=== PATIENT | male | born 1950 | race Caucasian/White ===

== ENCOUNTER 2024-07-15 20:31 | Emergency (ER) | payer MEDICARE, SELFPAY ==
[2024-07-15 20:40] VITALS: BP 158/96; PULSE 73; RESP 16; TEMP 36.2; O2SAT 93; BMI 33.2
[2024-07-15 20:56] LABS: Appearance Urine Clear (Clear); Bilirubin Urine Negative (Negative); Blood Urine 1+ (Negative); Color Urine Yellow (Yellow); Glucose Urine Negative (Negative); Ketones Urine Negative (Negative); Leukocyte Esterase Urine Negative (Negative); Nitrite Urine Negative (Negative); Protein Urine Negative (Negative); Specific Gravity Urine 1.015 (1.000-1.030); Urobilinogen Urine 0.2 (0.2-1.0); pH Urine 5.5 (5.0-8.5)
[2024-07-15 21:06] LABS: RBC Urine 0-2 (0-2); WBC Urine 0-2 (0-5)
--- NOTE | 2024-07-15 21:10 | ED_ITS ---
HPI - General Adult General Chief complaint: Urogenital Problems, Male Stated complaint: Frequency/Urgency urination Time Seen by Provider: 07/15/24 20:54 History of Present Illness HPI narrative: unable to hold urine this morning. Pt reports urination every 30 minutes. No col or to urine . No pain, no burning. No extra amount of fluid consumption. 73-year-old man presenting to the emergency department with concern of urinary frequency. Sounds as though some degree of urge incontinence as well. No dysuria. Is not drinking more than usual particularly; is not thirsty. Spouse checked his blood sugar at 110 earlier today. Has not had any fever. She does note that he has been maybe more short of breath lately last week and half perhaps but he does not posteriorly think so. No chest pain. They have been doing a lot of traveling. Actually from [place]. Spouse also mentions that he has had increased depth at his sock line lately. Also notes that his mother was diagnosed with diabetes. Does have a history of BPH and takes Flomax. Has been feeling more bloated lately. Does not otherwise have abdominal pain. Medications include -- amlodipine Aspirin Brimonidine tartrate drops Latanoprost drops Simvastatin solifenacin Fexofenadine Related Data Allergies Allergy/AdvReac Type Severity Reaction Status Date / Time No Known Drug Allergies Allergy Verified 07/15/24 20:45 Review of Systems Status of ROS: Reports: 6 or more systems reviewed and unremarkable except as noted in History and below [facility] Social History Smoking Status: Never smoker Do you use any of these nicotine containing products: None How often do you have a drink containing alcohol: never How often do you have six or more drinks on one occasion: Never AUDIT-C Alcohol total score: 0 Non-prescribed substance use: denies use service: No Exam Narrative: Exam Narrative: Pleasant. NAD. Affected speech and with hearing aids. Skin is warm and dry. Well-perfused peripherally. He does have 1+ pitting edema pretibially and about the ankles bilaterally. No inflammatory changes. Heart in regular rate and rhythm without apparent murmur rub or gallop. Lungs are clear. He is not tachypneic. He is breathing easily. Abdomen is protuberant, overweight, soft nontender. No masses appreciated. Const: Vital Signs, click to edit/add: Vital Signs - 24 hr 07/15/24 20:40 Temperature 97.2 F L Pulse Rate [Left P ulse Oximeter] 73 Respiratory Rate 16 Blood Pressure [Ri ght Upper Arm] 158/96 H Pulse Oximetry 93 Oxygen Delivery Me thod Room Air Documenting provider has reviewed patient's vital signs: yes Course Vital Signs Vital signs: Initial Vital Signs Temperature 97.2 F L 07/15/24 20:40 Temperature Source Temporal Artery Scan 07/15/24 20:40 Pulse Rate 73 07/15/24 20:40 Pulse Rhythm Regular 07/15/24 20:40 Respiratory Rate 16 07/15/24 20:40 Blood Pressure 158/96 H 07/15/24 20:40 Blood Pressure Mean 116 H 07/15/24 20:40 Blood Pressure Position Sitting 07/15/24 20:40 Pulse Oximetry 93 07/15/24 20:40 Oxygen Delivery Method Room Air 07/15/24 20:40 Vital Signs Temperature 97.2 F L 07/15/24 20:40 Pulse Rate 73 07/15/24 20:40 Respiratory Rate 16 07/15/24 20:40 Blood Pressure 158/96 H 07/15/24 20:40 Pulse Oximetry 93 07/15/24 20:40 Oxygen Delivery Method Room Air 07/15/24 20:40 Temperature 97.2 F L 07/15/24 20:40 Pulse Rate 73 07/15/24 20:40 Respiratory Rate 16 07/15/24 20:40 Blood Pressure 158/96 H 07/15/24 20:40 Pulse Oximetry 93 07/15/24 20:40 Oxygen Delivery Method Room Air 07/15/24 20:40 Medical Decision Making MDM Narrative Medical decision making narrative: Urinalysis is rate been collected by the time I am seeing this patient. Noted to have 1+ blood on dipstick. Microscopic is unremarkable. No evidence of infection here. Symptoms seem inconsistent with urethritis. I do not identify risk factors either. May have some overflow incontinence. Will do a bladder scan and reassess further at that time. I appreciate spousal concerns of potential kidney problems and diabetes. Does not have secondary symptoms that I would associate with diabetes insipidus. Does not appear to be in respiratory distress consistent with heart failure or fluid overload otherwise though oxygen saturations on room air on initial evaluation at 93% Traveling is not an unreasonable reason to have peripheral edema. No pain or inflammatory change and symmetry is reassuring. Bladder scanned for ?less than 160 mL Will be doing chest x-ray and broad laboratory workup looking for red flags. Might be beneficial to quantify urine out though current travel schedule would make this difficult. Signing out at change of shift Lab Data Lab results reviewed: Yes I reviewed the patient's lab results Labs: Lab Results 07/15/24 Range/Units 20:50 Urine Color Yellow (Yellow) Urine Appearance Clear (Clear) Urine pH 5.5 (5.0-8.5) Ur Specific [place] 1.015 (1.000-1.030) Urine Protein Negative (Negative) Urine Glucose (UA) Negative (Negative) Urine Ketones Negative (Negative) Urine Blood 1+ A (Negative) Urine Nitrite Negative (Negative) Urine Bilirubin Negative (Negative) Urine Urobilinogen 0.2 (0.2-1.0) Ur Leukocyte Esterase Negative (Negative) Urine RBC 0-2 (0-2) Urine WBC 0-2 (0-5) Ur Squamous Epith Cells None (None-Few) Urine Bacteria None (None) Discharge Plan Discharge Clinical Impression: Urinary frequency, Urge incontinence Patient Disposition: Home w/ Parent or Adult Condition: Stable Additional Instructions: Follow-up when you get back to [place]. Might need to quantify how much urine you are actually making. Elevate your legs when possible. Might help to have light compression stockings. Follow Up/Referrals: Provider,Not a Local [Primary Care Provider] - Stand Alone Forms: [employer] Info Instructions
--- NOTE | 2024-07-15 21:31 | CRLHL7_ITS ---
For Patients: As a result of the Cures Act, medical imaging exams and procedure reports are released immediately into your electronic medical record. You may view this report before your referring provider. If you have questions, please contact your health care provider. INDICATION: Mild hypoxia TECHNIQUE: Chest radiograph 1 view COMPARISON: None FINDINGS: The sensitivity and specificity of the exam are severely limited by the patient`s body habitus. Mediastinum: The mediastinum is normal in appearance. The heart silhouette is normal in size and morphology. Lung: Small lung volumes are present with minimal bibasilar subsegmental atelectasis. No sign of pleural effusion seen. No pneumothorax is identified. Bone and Soft tissue: Unremarkable for age. IMPRESSION: 1. Small lung volumes are present with minimal bibasilar subsegmental atelectasis. Dictated by Sam Arevalo MD @ 07/15/2024 10:36:01 PM Dictated by: Sam Arevalo MD @ 07/15/2024 22:36:05 (Electronically Signed)
--- OUTSIDE RECORDS SUMMARY | 2024-07-15 21:38 | XMS_ITS | Encounter Summary ---
[facility] Address [address] [place] [address] Care Team Providers Care Caramel Candy Maker Helper Name Role Phone Polo Urrutia DO Primary Care Provider Reason for Visit * Reason Comments Refill Request Encounter Details Date Type Department Care Team (Late st Contact Info) Description 06/11/2024 Refill [facility] [address] [place], [place] [id number] Polo Urrutia DO [address] [facility] [address] [place], [place] [id number] Refill Request Social History Tobacco Use Types Packs/Day Years Used Date Smoking Tobacco: Never Smokeless Tobacco: Never Alcohol Use Standard Drinks/Week Comments No 0 (1 standard drink = 0.6 oz pur e alcohol) occ Social Connection and Isolat ion Panel [NHANES] Answer Date Recorded In a typical week, how many times do you talk on the phone with family, friends, or neighbors? Patient declined 05/09/2023 How often do you get togethe r with friends or relatives? Once a week 05/09/2023 How often do you attend chur ch or roman catholic services? More than 4 times per year 05/09/2023 Do you belong to any clubs o r organizations such as yarsani groups, unions, fraternal or athletic groups, or school groups? Yes 05/09/2023 How often do you attend meet ings of the clubs or organizations you belong to? More than 4 times per year 05/09/2023 Are you , , di vorced, , never , or living with a partner? 05/09/2023 Overall Financial Resource Strain (CARDIA) Answe r Date Recorded How hard is it for you to pa y for the very basics like food, housing, medical care, and heating? Not hard at all 05/09/2023 [facility] - Occupational Stress Questionnaire Answer Date Recorded Do you feel stress - tense, restless, nervous, or anxious, or unable to sleep at night because your mind is troubled all the time - these days? Not at all 05/09/2023 Exercise Vital Sign Answer Date Recorde d On average, how many days pe r week do you engage in moderate to strenuous exercise (like a brisk walk)? 2 days 05/09/2023 On average, how many minutes do you engage in exercise at this level? 10 min 05/09/2023 Hunger Vital Sign Answer Date Recorded Within the past 12 months, y ou worried that your food would run out before you got the money to buy more. Never true 05/09/20 23 Within the past 12 months, t he food you bought just didn't last and you didn't have money to get more. Never true 05/09/2023 PRAPARE - Transportation Answer Date Re corded In the past 12 months, has l ack of transportation kept you from medical appointments or from getting medications? No 04/28 In the past 12 months, has l ack of transportation kept you from meetings, work, or from getting things needed for daily living? No 05/09/2023 Housing Stability Vital Sign Answer Sid e Recorded In the last 12 months, was t here a time when you were not able to pay the mortgage or rent on time? No 05/09/2023 In the last 12 months, how many places have you lived? 1 05/09/2023 In the last 12 months, was t here a time when you did not have a steady place to sleep or slept in a senior living (including now)? No 05/09/2023 Alcohol Use Answer Date Recorded Q1: How often do you have a drink containing alc ohol? Monthly or less 05/09/2023 Q2: How many drinks containi ng alcohol do you have on a typical day when you are drinking? 1 or 2 05/09/2023 Q3: How often do you have si x or more drinks on one occasion? Less than monthly 05/09/2023 Depression Answer Date Recorded Total PHQ-2 Score: 0 05/09/2023 PHQ-9 Score Not on file 05/09/2023 PHQ-9M Score Not on file 05/09/2023 Sex and Gender Information Value Date Recorded Sex Assigned at Male 10/19/2021 4:19 AM SPRAY PAINTER Gender Identity Male 10/19/2021 4:19 AM SPRAY PAINTER Sexual Orientation Choose not to disclose 2023 3:33 PM SPRAY PAINTER documented as of this encounter Miscellaneous Notes * Telephone Encounter - Isabella Saucedo CMA - 06/12/2024 7:15 AM CDT Failed protocol due to need for Office Visit and/or labs. 90 days with 0 refills given. Next appointment: Future Appointments Date Time Provider Department Center 06/23/2024 2:30 PM Milagro Fernandez Au.D. ENT ENT 06/24/2024 9:00 AM Landry Chavez MD [facility] 06/27/2024 8:45 AM Sandy Rivero MD [facility] 07/01/2024 8:40 AM [facility] 07/01/2024 3:15 PM Polo Urrutia DO [facility] [place] documented in this encounter Plan of Treatment Upcoming Encounters Date Type Department Care Team (Late st Contact Info) Description 07/23/2024 1:30 PM CDT Office Visit [facility] [address] [place] [address] Sandy Rivero MD [address] [place] [id number] 09/26/2024 1:00 PM SPRAY PAINTER Appointment [facility] [address] [place] [address] Polo Urrutia DO [address] [place] [address] 10/07/2024 1:00 PM SPRAY PAINTER Office Visit [facility] [address] [place] [address] Landry Chavez MD [address] [place] [address] 12/15/2024 2:00 PM SPRAY PAINTER Office Visit [facility] [address] [place] [phone] Milagro Fernandez Au.D. [address] [place] [phone] 07/08/2025 8:00 AM CDT Lab/Non-Imaging [facility] [address] [place] [address] 07/08/2025 8:45 AM CDT Office Visit [facility] [address] [place] [address] Polo Urrutia DO [address] [place] [address] documented as of this encounter Visit Diagnoses Not on filedocumented in this encounter Additional Health Concerns Assessment Noted Time PHQ-9 Depression Total Score: 3 09/28/20 15 5:07 PM SPRAY PAINTER A fall risk assessment has been complete d for the patient 11/14/2022 9:17 AM SPRAY PAINTER documented as of this encounter Care Teams Caramel Candy Maker Helper Relationship Specialty Start Date End Date Polo Urrutia DO [address] [place] [address] PCP - General Family Medicine 04/22/19 documented as of this encounter
--- OUTSIDE RECORDS SUMMARY | 2024-07-15 21:38 | XMS_ITS | Encounter Summary ---
[facility] Address [address] [place] [address] Care Team Providers Care Technical Sourcing Recruiter Name Role Phone Polo Urrutia DO Primary Care Provider Reason for Referral * Procedures (Routine) - Authorized Specialty Diagnoses / Procedures Referred By Maria Teresa cuba Referred To Contact Diagnoses Snoring Daytime somnolence Procedures HOME SLEEP APNEA TEST 93870 ([facility] ONLY) Polo Urrutia DO [address] [place] [address] Referral ID Status Reason Start Date Expiration Date Visits Requested Visits Authorized [id number] Authorized Specialty Services Required 07/01/2024 12/28/2024 1 1 Reason for Visit * Reason Comments Medicare - Subsequent Wellness Visit Encounter Details Date Type Department Care Team (Late st Contact Info) Description 07/01/2024 3:15 PM CDT Office Visit [facility][Note 3] [address] [place], [place] [id number] Polo Urrutia DO [address] [place], [place] [id number] Encounter for screening and preventative care (Primary Dx); Central retinal vein occlusion with macular edema of left eye (*); Essential hypertension; Dyslipidemia; Class 1 obesity due to excess calories with serious comorbidity and body mass index (BMI) of 32.0 to 32.9 in adult; Snoring; Daytime somnolence; Screening PSA (prostate specific antigen); IFG (impaired fasting glucose) Social History Tobacco Use Types Packs/Day Years Used Date Smoking Tobacco: Never Smokeless Tobacco: Never Alcohol Use Standard Drinks/Week Comments Yes 0 (1 standard drink = 0.6 oz pur e alcohol) [facility] Utilities Answer Date Recorded In the past 12 months has e [employer], [employer], oil, or water [employer] threatened to shut off services in your home? No 06/30/2024 Social Connection and Isolat ion Panel [NHANES] Answer Date Recorded In a typical week, how many times do you talk on the phone with family, friends, or neighbors? Never 06/30/2024 How often do you get togethe r with friends or relatives? Once a week 06/30/2024 How often do you attend chur ch or baptist services? More than 4 times per year 06/30/2024 Do you belong to any clubs o r organizations such as taoist groups, unions, fraternal or athletic groups, or school groups? Yes 06/30/2024 How often do you attend meet ings of the clubs or organizations you belong to? 1 to 4 times per year 06/30/2024 Are you , , di vorced, , never , or living with a partner? 06/30/2024 Overall Financial Resource Strain (CARDIA) Answe r Date Recorded How hard is it for you to pa y for the very basics like food, housing, medical care, and heating? Not hard at all 05/09/2023 [employer] [place] [employer] - Occupational Stress Questionnaire Answer Date Recorded Do you feel stress - tense, restless, nervous, or anxious, or unable to sleep at night because your mind is troubled all the time - these days? Not at all 06/30/2024 Exercise Vital Sign Answer Date Recorde d On average, how many days pe r week do you engage in moderate to strenuous exercise (like a brisk walk)? 2 days 06/30/2024 On average, how many minutes do you engage in exercise at this level? 10 min 06/30/2024 Hunger Vital Sign Answer Date Recorded Within the past 12 months, y ou worried that your food would run out before you got the money to buy more. Never true 06/30/20 24 Within the past 12 months, t he food you bought just didn't last and you didn't have money to get more. Never true 06/30/2024 PRAPARE - Transportation Answer Date Re corded In the past 12 months, has l ack of transportation kept you from medical appointments or from getting medications? No 11/2023 In the past 12 months, has l ack of transportation kept you from meetings, work, or from getting things needed for daily living? No 06/30/2024 Housing Stability Vital Sign Answer Sid e [...] place to sleep or slept in a longterm (including now)? No 05/09/2023 Alcohol Use Answer Date Recorded Q1: How often do you have a drink containing alc ohol? Monthly or less 06/30/2024 Q2: How many drinks containi ng alcohol do you have on a typical day when you are drinking? 1 or 2 06/30/2024 Q3: How often do you have si x or more drinks on one occasion? Never 06/30/2024 Depression Answer Date Recorded Total PHQ-2 Score: 0 06/30/2024 PHQ-9 Score 0 06/30/2024 PHQ-9M Score Not on file 06/30/2024 Sex and Gender Information Value Date Recorded Sex Assigned at Male 10/19/2021 4:19 AM ALGEBRA TUTOR Gender Identity Male 10/19/2021 4:19 AM ALGEBRA TUTOR Sexual Orientation Choose not to disclose 2023 3:33 PM ALGEBRA TUTOR documented as of this encounter Last Filed Vital Signs Vital Sign Reading Time Taken Comments Blood Pressure 112/78 07/01/2024 3:05 PM CDT Pulse 82 07/01/2024 3:05 PM CDT Temperature - - Respiratory Rate - - Oxygen Saturation 93% 07/01/2024 3:05 PM CDT Inhaled Oxygen Concentration - - Weight 108 kg (238 lb) 07/01/2024 3:05 PM CDT Height 180.3 cm (5' 11) 07/01/2024 3:05 PM CDT Body Mass Index 33.19 07/01/2024 3:05 PM CDT documented in this encounter Progress Notes * Polo Urrutia, DO - 07/01/2024 3:15 PM CDT Georges Hendricks is a 73 year old (: 1950) male who presents to the office today for a Medicare Wellness Exam. He reports that in general his health is good and that his confidence level in controlling and managing his health is somewhat confident Advance Care Planning Patient Documents Type of Document Status Date Received Received By Description Advance Directives and Living Will Scanned 11/05/2020 11:59 AM SARA BOOGIE POA [id number] History Medical and Family History Patient reported hospitalizations in the past year: No Patient reported illnesses requiring medical attention in the past year: Yes Patient reported injuries requiring medical attention in the past year: Yes Medical, Surgical, and Family History have been reviewed and updated. 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 HTN (hypertension) 06/12/2012 Hyperlipidemia 06/12/2012 Other and unspecified hyperlipidemia Unspecified essential hypertension Past Surgical History: Procedure Laterality Date ANESTH,PROCEDURES ON EYE ANESTH,REPAIR UPPER ABD HERNIA NOS 2008 CATARACT EXTRACTION EXTRACAPSULAR W/ INTRAOCULAR LENS IMPLANTATION Bilateral CATARACT EXTRACTION, BILATERAL COLONOSCOPY N/A 11/14/2022 Colonoscopy performed by Emanuel Silva MD at [facility] COLONOSCOPY POLYPECTO N/A 10/18/2017 COLONOSCOPY WITH POLYPECTOMY OR REMOVAL LESION performed by Quinn Gerardo MD at [facility] INGUINAL HERNIA REPAIR right side, also had hernia surgery as young child MUSCULOSKELETAL SURGERY UNLISTED 2007 finger ORAL SURGERY PROCEDURE teeth removed RETINAL DETACHMENT SURGERY Right VASECTOMY Family History Problem Relation Name Age of Onset Diabetes Mother Heart/Vascular Mother [place] Cataracts Mother Glaucoma Mother Stroke Father 50 Medication Patient reports that he takes his medications as prescribed: Always Patient's medications were reviewed and updated and are listed below: Current Outpatient Medications: amLODIPine (NORVASC) 5 mg oral tablet, Take 1 tablet (5 mg total) by mouth once daily. Indications:High Blood Pressure Disorder aspirin 81 MG oral tablet, Take 81 mg by mouth every day. doxycycline monohydrate (ADOXA) 50 mg oral tablet, Take 1 tablet (50 mg total) by mouth twice dailyUse twice daily for 1 week, then once daily for 3 more weeks. Indications: Rosacea gfklkhxy-nhdgcozqz-ibrNCDYZgnbws (MAXITROL) 3.5-10,000-0.1 eye SUSP, SHAKE LIQUID AND INSTILL 1 DROP IN BOTH EYES THREE TIMES DAILY simvastatin (ZOCOR) 20 mg oral tablet, Take 1 tablet (20 mg total) by mouth once daily. Indications: Increase in the Amount of Cholesterol in the Blood solifenacin (VESICARE) 5 mg oral tablet, Take 1 tablet (5 mg total) by mouth once daily. Indications: Urinary Urgency tamsulosin (FLOMAX) 0.4 mg oral capsule, Take 1 capsule (0.4 mg total) by mouth once daily. Indications: Benign Enlargement of Prostate brimonidine (ALPHAGAN) 0.2 % eye eye drops, Place 1 drop into both eyes 2 (two) times a day. Allergies Review of patient's allergies indicates: No Known Allergies Current List of Providers and Suppliers: Patient Care Team Relationship Specialty Notifications Start End Polo Urrutia DO PCP - General Family Medicine 04/22/19 [id number] [address] [facility] [address] [facility] [id number] Visit Vitals: BP Readings from Last 1 Encounters: 07/01/24 112/78 Pulse Readings from Last 1 Encounters: 07/01/24 82 Ht Readings from Last 1 Encounters: 07/01/24 5' 11 (1.803 m) Wt Readings from Last 1 Encounters: 07/01/24 238 lb (108 kg) BMI Readings from Last 1 Encounters: 07/01/24 33.19 kg/m?? Risk Assessment: Cognitive: Does patient or family/caregiver have concerns with patients memory, language, thinking or judgment?: None Psychosocial: Depression/Anxiety: 06/30/2024 11:14 AM 05/09/2023 11:33 AM Anxiety/Depression Feeling nervous, anxious or on edge Not at all Not being able to stop or control worrying Not at all CURT-2 score: 0 Little interest or pleasure in doing things Not at all Not at all Feeling down, depressed or hopeless Not at all Not at all Total PHQ-2 Score: 0 0 Total PHQ 4 Score 0 Trouble falling or staying asleep, or sleeping too much Not at all Feeling tired or having little energy Not at all Poor appetite or overeating Not at all Feeling bad about yourself or that you are a failure or have let yourself or your family down Not at all Thoughts that you would be better off , or of hurting yourself Not at all Trouble concentrating on things, such as reading the newspaper or watching television Not at all Moving/speaking slowly, or fidgety or restless Not at all Total PHQ-9 Score 0 How difficult have the problems made it to do work, take care of things, or get along with others? Not Difficult at All PHQ-9 Interpretation: Based on Total Score Negative PHQ-2 Interpretation: Based on Total Score Negative Negative Stress: Stress: No Stress Concern Present (06/30/2024) [place] [employer] - Occupational Stress Questionnaire Feeling of Stress : Not at all Functional Ability and Level of Safety ADL???s/IADL???s: Patient needs assistance with the following activities of daily living (ADL???s): None Patient needs assistance with the following instrumental activities of daily living (IADL???s): None Fall Risk: Patient evaluated as LOW FALLS RISK see falls risk flowsheet and encounter orders. Hearing Impairment: Patient has hearing aids? Yes Patient reports trouble hearing when in a group or when there???s background noise? Yes Patient reports that they strain or struggle to hear/understand conversations? Yes Home Safety: Patient's home has the following potential safety risks: None Patient's home is equipped with the following safety features: Functioning smoke alarms;Functioningcarbon monoxide alarms;Grab bars in the shower and/or tub Other Nutrition/Food Insecurity: Patient rates appetite as: Good Patient reports the following dietary restrictions? No Unexplained or unplanned weight gain or loss in the past year? Yes - weight gain Food Insecurity: Food Insecurity: No Food Insecurity (06/30/2024) Hunger Vital Sign Worried About Running Out of Food in the Last Year: Never true Ran Out of Food in the Last Year: Never true Bladder Control: Patient reports that bladder control a problem? No Has urine leakage changed the patient???s daily activities or interfered with sleep? No If urine leakage is a problem, patient is willing to try: Nothing/and not applicable Screening Health Maintenance Topic Completion Date Date Due Shingles (1 of 2) --- Never done RSV Adult 60+ and patients (Shared Decision Making) (1 - 1-dose 60+ series) --- Never done COVID-19 Vaccine ( season) 2022 06/29/2024 Colonoscopy (Heightened Surveillance) 11/14/2022 11/14/2027 DTaP/Tdap/Td/Tetanus (3 - Td or Tdap) 05/05/2021 05/05/2031 Immunization History Administered Date(s) Administered Influenza High Dose 07/24/2018, 08/19/2019, 06/12/2024 Influenza Quadrivalent High Dose P-Free 08/16/2020, 08/01/2021 Influenza Quadrivalent P-Free 09/28/2015 Influenza Trivalent 08/14/2011, 07/27/2013, 08/09/2014 Influenza Trivalent Preservative-Free 08/22/2012, 09/01/2016, 09/17/2017 Moderna SARS-CoV-2 100 mcg/0.5 mL MONOVALENT 01/05/2021, 02/02/2021 Moderna Sars-cov-2 50 MCG/0.25 ML Adult Booster Vaccine 10/20/2021, 05/09/2022 Pneumo-Conjugate 13 10/02/2017 Pneumococcal 23 04/22/2019 Td Preservative-Free 05/05/2021 Tdap > 7 Years 08/14/2011 ASSESSMENT: 1. Encounter for screening and preventative care 2. Central retinal vein occlusion with macular edema of left eye (*) 3. Essential hypertension 4. Dyslipidemia 5. Class 1 obesity due to excess calories with serious comorbidity and body mass index (BMI) of 32.0 to 32.9 in adult 6. Snoring 7. Daytime somnolence 8. Screening PSA (prostate specific antigen) 9. IFG (impaired fasting glucose) Encounter Diagnoses Code Name Primary? Z00.00 Encounter for screening and preventative care Yes H34.8120 Central retinal vein occlusion with macular edema of left eye (*) I10 Essential hypertension E78.5 Dyslipidemia E66.09, Z68.32 Class 1 obesity due to excess calories with serious comorbidity and body mass index (BMI) of 32.0 to 32.9 in adult R06.83 Snoring R40.0 Daytime somnolence Z12.5 Screening PSA (prostate specific antigen) R73.01 IFG (impaired fasting glucose) PLAN Based on the identified risks, the following orders and referrals have been placed: Orders Placed This Encounter Home Sleep Apnea Test Standing Status: Future Standing Expiration Date: 12/29/2024 Order Specific Question: Category for procedure: Answer: Hypersomnia/Fatigue Order Specific Question: Category for procedure: Answer: Obstructive Sleep Apnea/Snoring Order Specific Question: Insurance requires that a patient see their PCP before covering a home sleep test. Has the patient seen their PCP in the last six months? Answer: Yes Order Specific Question: Have you had a sleep study? Answer: No Order Specific Question: Does the patient snore? Answer: Yes Order Specific Question: Is the patient often tired during the day? Answer: Yes Order Specific Question: Does the patient stop breathing while they are asleep? Answer: No Order Specific Question: Does the patient have high blood pressure (or is the patient on medicationto control high blood pressure)? Answer: No Order Specific Question: If the patient answered yes to two or more of the above questions, then isthe patients body mass index (BMI) greater than 28? Answer: Yes Order Specific Question: Is the patient a male with a neck circumference greater than 17 inches or is the patient a female with a neck circumference greater than 16 inches? Answer: Yes Order Specific Question: Does the patient have a diagnosed heart condition? Answer: No Order Specific Question: Does the patient have any known seizure conditions? Answer: No Order Specific Question: Does the patient have hypertension? Answer: Yes Order Specific Question: Does the patient have diabetes? Answer: No Order Specific Question: Does the patient have a diagnosed mental health disorder? Answer: No Comprehensive Metabolic Panel Standing Status: Future Standing Expiration Date: 09/29/2025 Lipid Panel with Reflex LDL Standing Status: Future Standing Expiration Date: 09/29/2025 Glycohemoglobin/Hemoglobin A1C Standing Status: Future Standing Expiration Date: 09/29/2025 Microalbumin/Creat Ratio, Random Urine Standing Status: Future Standing Expiration Date: 12/29/2025 Prostatic Specific Ag, Screen Standing Status: Future Standing Expiration Date: 09/29/2025 tamsulosin (FLOMAX) 0.4 mg oral capsule Sig: Take 1 capsule (0.4 mg total) by mouth once daily. Indications: Benign Enlargement of Prostate Dispense: 90 capsule Refill: 4 solifenacin (VESICARE) 5 mg oral tablet Sig: Take 1 tablet (5 mg total) by mouth once daily. Indications: Urinary Urgency Dispense: 90 tablet Refill: 4 simvastatin (ZOCOR) 20 mg oral tablet Sig: Take 1 tablet (20 mg total) by mouth once daily. Indications: Increase in the Amount of Cholesterol in the Blood Dispense: 90 tablet Refill: 4 amLODIPine (NORVASC) 5 mg oral tablet Sig: Take 1 tablet (5 mg total) by mouth once daily. Indications: High Blood Pressure Disorder Dispense: 90 tablet Refill: 4 Future Appointments Date Time Provider Department Center 07/23/2024 1:30 PM Sandy Rivero MD [facility] 10/07/2024 1:00 PM Landry Chavez MD [facility] 12/15/2024 2:00 PM Milagro Fernandez Au.D. ENT [facility] 07/08[facility]2025 8:[facility] 07/08/2025 8:45 AM [facility]ut[facility] Documenting and scribing by Jaida Jimenez LPN on behalf of Polo Urrutia DO. I have reviewed and agree. Polo Urrutia DO. * Polo Urrutia DO - 07/01/2024 3:15 PM CDT Images from the original note were not included. ASSESSMENT/PLAN: 1. Encounter for screening and preventative care Discussed RSV vaccine from local pharmacy. [facility] 2. Central retinal vein occlusion with macular edema of left eye (*) He will continue follow-up in management through ophthalmology. 3. Essential hypertension Controlled on current regimen 4. Dyslipidemia LDL is well-controlled with simvastatin. Encouraged him on weight reduction to help with triglycerides. 5. Class 1 obesity due to excess calories with serious comorbidity and body mass index (BMI) of 32.0 to 32.9 in adult Healthy lifestyle exercise and weight reduction encouraged. 6. Snoring - HOME SLEEP APNEA TEST 64031 ([facility] ONLY); Future He has had some daytime somnolence and snoring suspicious for sleep apnea. Will get him set up for home apnea link testing for further evaluation. 7. Daytime somnolence - HOME SLEEP APNEA TEST 69650 ([facility] ONLY); Future Health maintenance recommendations were reviewed. Healthy diet, exercise and weight management werereviewed. Healthy lifestyle reviewed including refraining from tobacco use and limiting alcohol consumption to 1-2 daily. No orders of the defined types were placed in this encounter. Orders Placed This Encounter tamsulosin (FLOMAX) 0.4 mg oral capsule Sig: Take 1 capsule (0.4 mg total) by mouth once daily. Indications: Benign Enlargement of Prostate Dispense: 90 capsule Refill: 4 solifenacin (VESICARE) 5 mg oral tablet Sig: Take 1 tablet (5 mg total) by mouth once daily. Indications: Urinary Urgency Dispense: 90 tablet Refill: 4 simvastatin (ZOCOR) 20 mg oral tablet Sig: Take 1 tablet (20 mg total) by mouth once daily. Indications: Increase in the Amount of Cholesterol in the Blood Dispense: 90 tablet Refill: 4 amLODIPine (NORVASC) 5 mg oral tablet Sig: Take 1 tablet (5 mg total) by mouth once daily. Indications: High Blood Pressure Disorder Dispense: 90 tablet Refill: 4 Follow up in about 1 year (around 07/01/2025) for medicare wellness exam, fasting labs. Future Appointments Date Time Provider Department Center 07/23/2024 1:30 PM Sandy Rivero MD [facility] 10/07/2024 1:00 PM Landry Chavez MD [facility] 12/15/2024 2:00 PM Milagro Fernandez Au.D. ENT ENT 07/08/2025 8:00 AM [facility] 07/08/2025 8:45 AM Polo Urrutia DO [facility] Documenting and scribing by Jaida Jimenez LPN on behalf of Polo Urrutia DO. Reviewed and approved by Polo Urrutia DO. Chief Complaint Patient presents with Medicare - Subsequent Wellness Visit SUBJECTIVE: Georges Hendricks is a 73 year old male who is here for a Medicare wellness visitand physical exam. Additional concerns: None. He states overall he is feeling well. He continues to follow-up with ophthalmology for injections related to his central retinal vein occlusion. Otherwise denies any issueswith chest pain or shortness of breath. His does tells him that he snores and that he does find himself struggling to stay awake in the afternoon or evening. He has never had evaluation for sleep apnea. Otherwise health history family history and social history reviewed. Medicare Wellness Flowsheet reviewed. Review of Systems no headaches strokes seizures or fainting spells. He does wear hearing aids. No thyroid disease or dysphagia. No chest pain or shortness of breath. No chronic cough or wheezing. No GI or symptoms. No arthralgias or edema. Otherwise unremarkable Patient Active Problem List Diagnosis Allergic rhinitis Dyslipidemia Essential hypertension Class 1 obesity due to excess calories with serious comorbidity and body mass index (BMI) of 32.0 to 32.9 in adult Benign prostatic hyperplasia with nocturia Central retinal vein occlusion with macular edema of left eye (*) Ocular hypertension of left eye Current Outpatient Medications on File Prior to Visit Medication Sig Dispense Refill aspirin 81 MG oral tablet Take 81 mg by mouth every day. doxycycline monohydrate (ADOXA) 50 mg oral tablet Take 1 tablet (50 mg total) by mouth twice daily Use twice daily for 1 week, then once daily for 3 more weeks. Indications: Rosacea 35 tablet 1 aotplsvz-tgswgetsp-xjqIGZUPqourd (MAXITROL) 3.5-10,000-0.1 eye SUSP SHAKE LIQUID AND INSTILL 1 DROPIN BOTH EYES THREE TIMES DAILY 5 mL 0 brimonidine (ALPHAGAN) 0.2 % eye eye drops Place 1 drop into both eyes 2 (two) times a day. 30 mL 3 [DISCONTINUED] amLODIPine (NORVASC) 5 mg oral tablet Take 1 tablet (5 mg total) by mouth once daily. Indications: High Blood Pressure Disorder 90 tablet 0 [DISCONTINUED] latanoprost (XALATAN) 0.005 % eye eye drops Place 1 drop into both eyes every night at bedtime. [DISCONTINUED] bmmbgnmb-achxtvsox-rovDPOBJeplmu (MAXITROL) 3.5-10,000-0.[address] 1 drop into both eyes three times daily. 5 mL 0 [DISCONTINUED] simvastatin (ZOCOR) 20 mg oral tablet Take 1 tablet (20 mg total) by mouth once daily. Indications: Increase in the Amount of Cholesterol in the Blood 90 tablet 0 [DISCONTINUED] solifenacin (VESICARE) 5 mg oral tablet Take 1 tablet (5 mg total) by mouth once daily. Indications: Urinary Urgency 90 tablet 0 [DISCONTINUED] tamsulosin (FLOMAX) 0.4 mg oral capsule Take 1 capsule (0.4 mg total) by mouth once daily. Indications: Benign Enlargement of Prostate 90 capsule 0 No current facility-administered medications on file prior to visit. Review of patient's allergies indicates: No Known Allergies reports that he has never smoked. He has never used smokeless tobacco. He reports current alcohol use. He reports that he does not use drugs. Health Maintenance Summary Overdue - Shingles (1 of 2) Never done No completion history exists for this topic. Overdue - RSV Adult 60+ and patients (Shared Decision Making) (1 - 1- dose 60+ series) Never done No completion history exists for this topic. Overdue - COVID-19 Vaccine (2022-24 season) Overdue since 06/29/2024 05/09/2022 Imm Admin: Moderna Sars-cov-2 50 MCG/0.25 ML Adult Booster Vaccine 10/20/2021 Imm Admin: Moderna Sars-cov-2 50 MCG/0.25 ML Adult Booster Vaccine 02/02/2021 Imm Admin: Moderna SARS-CoV-2 100 mcg/0.5 mL MONOVALENT 01/05/2021 Imm Admin: Moderna SARS-CoV-2 100 mcg/0.5 mL MONOVALENT Pneumococcal 65+ (Series Information) Completed 04/22/2019 Imm Admin: Pneumococcal 23 10/02/2017 Imm Admin: Pneumo-Conjugate 13 Hep C Screening Completed 05/11/2023 HEP C ANTIBODY component of HEPATITIS C ANTIBODY W/REFLEX HCV BY QUANT NAAT ([facility] ONLY) Flu 6M+ (Series Information) Completed 06/12/2024 Outside Immunization: Influenza High Dose Trivalent, P-Free 08/01/2021 Imm Admin: Influenza Quadrivalent High Dose P-Free 08/16/2020 Imm Admin: Influenza Quadrivalent High Dose P-Free 08/19/2019 Imm Admin: Influenza High Dose 07/24/2018 Imm Admin: Influenza High Dose Only the first 5 history entries have been loaded, but more history exists. OBJECTIVE: Visit Vitals BP 112/78 (BP Site: R ARM, Patient Position: Sitting, Cuff Size: Large Long Adult (Bariatric)) Pulse 82 Ht 5' 11 (1.803 m) Wt 238 lb (108 kg) SpO2 93% BMI 33.19 kg/m?? BP Readings from Last 3 Encounters: 07/01/24 112/78 11/17/23 122/82 05/11/23 122/80 Wt Readings from Last 3 Encounters: 07/01/24 238 lb (108 kg) 11/17/23 239 lb 12.8 oz (108.8 kg) 05/11/23 231 lb 3.2 oz (104.9 kg) VS noted, nurse's notes reviewed. General: Patient is alert and cooperative,is well groomed and obese Physical Exam HEENT: Hearing aids in place. Oropharynx without erythema or exudate Neck: no lymphadenopathy, thyromegaly or bruits Lungs: clear to auscultation bilaterally with good air movement and breathing nonlabored Heart: auscultation of heart revels a regular rate with no murmurs, gallops or rubs Abdomen: Obese-normal bowel sounds, soft and non-tender. Extremities: Edema: None. Distal pulses of the lower extremities: Intact bilaterally Psych: Affect appropriate. He is pleasant and well composed. Labs drawn for today's visit noted below reviewed with patient at visit. Recent Results (from the past 336 hour(s)) JUST IN CASE LAVENDER TOP TUBE Result Value Ref Range EXTRA LAVENDER Extra Lavender BASIC METABOLIC PANEL Result Value Ref Range GLUCOSE 108 (H) 70 - 100 mg/dL UREA NITROGEN 13 9 - 23 mg/dL CREATININE 1.04 0.73 - 1.18 mg/dL eGFR 77 >=60 mL/Min/1.73 sqm SODIUM 142 136 - 145 mmol/L (mEq/L) POTASSIUM 4.3 3.5 - 5.1 mmol/L (mEq/L) CHLORIDE 113 (H) 101 - 112 mmol/L (mEq/L) TOTAL CO2 25 20 - 31 mmol/L (mEq/L) CALCIUM 9.5 8.7 - 10.4 mg/dL ALT/SGPT, BLOOD Result Value Ref Range SGPT/ALT 20 10 - 49 U/L LIPID PANEL WITH REFLEX LDL Result Value Ref Range CHOLESTEROL 154 <200 mg/dL TRIGLYCERIDE 160 (H) <150 mg/dL HDL CHOLESTEROL 35 (L) >50 mg/dL NON HDL CHOLESTEROL 119 <130 mg/dl LDL 87 <=100 mg/dl CHOL/HDL RATIO 4.4 <4.5 MICROALBUMIN/CREAT RATIO,RANDOM URINE Result Value Ref Range MICROALBUMIN 10.0 Reference range not established mg/L CREATININE, URINE 161 39 - 259 mg/dL ALBUMIN/CREAT RATIO 6 0 - 20 mg/g documented in this encounter Plan of Treatment Upcoming Encounters Date Type Department Care Team (Late st Contact Info) Description 07/23/2024 1:30 PM CDT Office Visit [facility] [address] [place] [address] Sandy Rivero MD [address] [place] [address] 09/26/2024 1:00 PM ALGEBRA TUTOR Appointment [facility] [address] [place] [address] Polo Urrutia DO [facility] [address] [address] 10/07/2024 1:00 PM ALGEBRA TUTOR Office Visit [facility] [address] [place] [address] Landry Chavez MD [address] [place] [address] 12/15/2024 2:00 PM ALGEBRA TUTOR Office Visit [facility] Ear Nose Throat [address] [place] [phone] Milagro Fernandez Au.D. [address] [place] [address] 07/08/2025 8:00 AM CDT Lab/Non-Imaging [facility] [address] [place] [address] 07/08/2025 8:45 AM CDT Office Visit [facility][Note 3] [address] [place] [address] Polo Urrutia DO [address] [place], [place] [phone] Scheduled Orders Name Type Priority Associated Diagnoses Orde r Schedule HOME SLEEP APNEA TEST 92669 ([facility] ONLY) Procedures Routine Snoring Daytime somnolence Expected: 07/31/2024 (Approximate), Expires: 12/29/2024 PANEL, COMPREHENSIVE METABOLIC Lab Routine Essential hypertension Dyslipidemia Expected: 07/01/2025 (Approximate), Expires: 09/29/2025 LIPID PANEL WITH REFLEX LDL Lab Routine Dyslipidemia Expected: 07/01/2025 (Approximate), Expires: 09/29/2025 GLYCOHEMOGLOBIN/HEMOGLOBI N A1C ([facility] ONLY) Lab Routine IFG (impaired fasting glucose) Expected: 07/01/2025 (Approximate), Expires: 09/29/2025 MICROALBUMIN/CREAT RATIO,RANDOM URINE Lab Routine IFG (impaired fasting glucose) Expected: 07/01/2025, Expires: 12/29/2025 PROSTATIC SPECIFIC AG, SCREEN Lab Routine Screening PSA (prostate specific antigen) Expected: 07/01/2025 (Approximate), Expires: 09/29/2025 documented as of this encounter Visit Diagnoses Diagnosis Encounter for screening and preventative care- Primary Central retinal vein occlusion with macular edema of left eye (*) Essential hypertension Unspecified essential hypertension Dyslipidemia Other and unspecified hyperlipidemia Class 1 obesity due to excess calories with serious comorbidity and body mass index (BMI) of 32.0 to 32.9 in adult Snoring Other dyspnea and respiratory abnormality Daytime somnolence Screening PSA (prostate specific antigen) Special screening for malignant neoplasm of prostate IFG (impaired fasting glucose) Impaired fasting glucose documented in this encounter Additional Health Concerns Assessment Noted Time PHQ-9 Depression Total Score: 0 06/30/20 11:14 AM CDT A fall risk assessment has been complete d for the patient 11/14/2022 9:17 AM ALGEBRA TUTOR documented as of this encounter Care Teams Technical Sourcing Recruiter Relationship Specialty Start Date End Date Polo Urrutia DO [address] [address] PCP - General Family Medicine 04/22/19 documented as of this encounter
--- OUTSIDE RECORDS SUMMARY | 2024-07-15 21:38 | XMS_ITS | Encounter Summary ---
Author Organization [facility], and Affiliates Address [address] [place] [address] Care Team Providers Care Assistant Athletic Trainer Name Role Phone GhadaPolo sher Primary Care Provider [phone] Reason for Visit * Reason Comments Hearing Problem Encounter Details Date Type Department Care Team (Late st Contact Info) Description 06/23/2024 2:30 PM CDT Office Visit [facility] Ear Nose Throat [address] [place] [phone] Milagro Fernandez AuNini [address] [place] [phone] Sensorineural hearing loss (SNHL), bilateral (Primary Dx) Social History Tobacco Use Types Packs/Day Years [...] week 05/09/2023 How often do you attend [facility] or scientologist services? More than 4 times per year 05/09/2023 Do you belong to any clubs o r organizations such as mosque groups, unions, fraternal or athletic groups, or [...] and heating? Not hard at all 05/09/2023 [facility] Occupat ional Health - Occupational Stress [...] place to sleep or slept in a group home (including now)? No 05/09/2023 Alcohol Use Answer [...] Sex Assigned at Male 10/19/2021 4:19 AM TWENTY ONE DEALER Gender Identity Male 10/19/2021 4:19 AM TWENTY ONE DEALER Sexual Orientation Choose not to disclose 2023 3:33 PM TWENTY ONE DEALER documented as of this encounter Progress Notes * Milagro Fernandez Au.D. - 06/23/2024 2:30 PM CDT Hearing Aid Maintenance Roro is in today for routine hearing aid maintenance. Initial exam indicates the aids are in need of cleaning and providing amplification. Otoscopy of the right ear indicates a clear external auditory canal and tympanic membrane is visible. Otoscopy of the left ear indicates a clear external auditory canal and tympanic membrane is visible. The hearing aids were cleaned and checked, including clean ing the overall case, the battery compartment, vacuuming the microphone and intake manager ports, and running the aids through the dryer. Earmolds were washed and cleaned and tubes replaced with 13 dry tubes. Final listening check okay. Post hearing aid cleaning, roro was pleased with the hearing aid sound quality. Plan: Recommend return prn or in 6 months for routine hearing aid maintenance. documented in this encounter Plan of Treatment Upcoming Encounters Date Type Department Care Team (Late st Contact Info) Description 07/23/2024 1:30 PM CDT Office Visit [facility] [address] [place] [address] Sandy Rivero MD [address] [place] [address] 09/26/2024 1:00 PM TWENTY ONE DEALER Appointment [facility] [address] [place] [address] Polo Urrutia, [address] [place] [address] 10/07/2024 1:00 PM TWENTY ONE DEALER Office Visit [facility] [address] [place] [address] Landry Chavez MD [address] [place] [address] 12/15/2024 2:00 PM TWENTY ONE DEALER Office Visit [facility] Ear Nose Throat [address] [place] [phone] Milagro Fernandez Au.D. [address] [place] [phone] 07/08/2025 8:00 AM CDT Lab/Non-Imaging [facility] [address] [place] [address] 07/08/2025 8:45 AM CDT Office Visit [facility] [address] [place] [address] Polo Urrutia DO [address] [place] [address] documented as of this encounter Procedures Procedure Name Priority Date/Time Associated Diagnosis Comments HEARING AID REPAIR/MODIFYING Routine 06/23/2024 2:32 PM CDT Sensorineural hearing loss (SNHL), bilateral HEARING AID REPAIR/MODIFYING Routine 06/23/2024 2:32 PM CDT Sensorineural hearing loss (SNHL), bilateral documented in this encounter Visit Diagnoses Diagnosis Sensorineural hearing loss (SNHL), bilateral- Primary documented in this encounter Additional Health Concerns Assessment Noted Time PHQ-9 Depression Total Score: 3 09/28/20 15 5:07 PM TWENTY ONE DEALER A fall risk assessment has been complete d for the patient 11/14/2022 9:17 AM TWENTY ONE DEALER documented as of this encounter Care Teams Assistant Athletic Trainer Relationship Specialty Start Date End Date Polo Urrutia DO [address] [address] PCP - General Family Medicine 04/22/19 documented as of this encounter
--- OUTSIDE RECORDS SUMMARY | 2024-07-15 21:38 | XMS_ITS | Encounter Summary ---
Author Organization [facility], and Affiliates Address [address] [place] [address] Care Team Providers Care Supervisor Lead Refinery Name Role Phone Polo Urrutia DO Primary Care Provider [phone] Encounter Details Date Type Department Care Team (Latest Contact Info) Description 06/22/2024 Travel Social History Tobacco Use Types Packs/Day Years [...] often do you attend chur ch or christianity services? More than 4 times per year 05/09/2023 Do you belong to any clubs o r organizations such as caodaism groups, unions, fraternal or athletic groups, or [...] and heating? Not hard at all 05/09/2023 [facility] Occupat ional Health - Occupational [...] place to sleep or slept in a nursing home (including now)? No 05/09/2023 Alcohol Use [...] Sex Assigned at Male 10/19/2021 4:19 AM THREADER OPERATOR Gender Identity Male 10/19/2021 4:19 AM THREADER OPERATOR Sexual Orientation Choose not to disclose 2023 3:33 PM THREADER OPERATOR documented as of this encounter Plan of Treatment Upcoming Encounters Date Type Department Care Team (Late st Contact Info) Description 07/23/2024 1:30 PM CDT Office Visit [facility] [address] [place] [address] Sandy Rivero MD [address] [place] [address] 09/26/2024 1:00 PM THREADER OPERATOR Appointment [facility] [address] [place] [address] Polo Urrutia DO [address] [place] [address] 10/07/2024 1:00 PM THREADER OPERATOR Office Visit [facility] [address] [place] [address] Landry Chavez MD [address] [place] [address] 12/15/2024 2:00 PM THREADER OPERATOR Office Visit [facility] Ear Nose Throat [address] [place] [phone] Milagro Fernandez Au.D. [address] [place] [address] 07/08/2025 8:00 AM CDT Lab/Non-Imaging [facility] [address] [place] [address] 07/08/2025 8:45 AM CDT Office [facility] [address] [place] [address] Polo Urrutia DO [address] [place] [address] documented as of this encounter Visit Diagnoses Not on filedocumented in this encounter Additional Health Concerns Assessment Noted Time PHQ-9 Depression Total Score: 3 09/28/20 15 5:07 PM THREADER OPERATOR A fall risk assessment has been complete d for the patient 11/14/2022 9:17 AM THREADER OPERATOR documented as of this encounter Care Teams Supervisor Lead Refinery Relationship Specialty Start Date End Date Polo Urrutia DO [address] [place] [address] PCP - General Family Medicine 04/22/19 documented as of this encounter
--- OUTSIDE RECORDS SUMMARY | 2024-07-15 21:38 | XMS_ITS | Encounter Summary ---
Author Organization [facility], and Affiliates Address [address] [place] [address] Care Team Providers Care Physicist Light And Optics Name Role Phone GhadaPolo garrison Primary Care Provider Reason for Visit * Reason Comments Office Visit (Eye) Follow up Bacterial Conjuctivitis OU Encounter Details Date Type Department Care Team (Latest Contact Info) Description 06/06/2024 9:45 AM CDT Office Visit [address] [address] Sandy Rivero MD [address] [place] [phone] Rosacea blepharoconjunctivitis (Primary Dx) Social History Tobacco Use Types [...] week 05/09/2023 How often do you attend [facility] or moravian services? More than 4 times per year 05/09/2023 Do you belong to any clubs o r organizations such as tenriism groups, unions, fraternal or athletic groups, or [...] and heating? Not hard at all 05/09/2023 [facility] Occupat ional Health - Occupational Stress [...] to sleep or slept in a senior care (including now)? No 05/09/2023 Alcohol Use Answer [...] Sex Assigned at Male 10/19/2021 4:19 AM SEAMSTRESS FITTER Gender Identity Male 10/19/2021 4:19 AM SEAMSTRESS FITTER Sexual Orientation Choose not to disclose 2023 3:33 PM SEAMSTRESS FITTER documented as of this encounter Patient Instructions * Patient Instructions* Sandy Rivero MD - 06/06/2024 9:45 AM CDT CONTINUE Erythromycin to lids at bedtime Neopolydex (Maxitrol), decrease to twice daily for 1 week then once daily for 1 week then stop Ocusoft in the morning, use a circular motion at the lash base and wipe away ADD Warm compresses for at least 10 minutes each evening Doxycycline, 50 mg twice daily for 1 week then once daily for 3 more weeks Follow up as recommended by your doctor. Please be aware that some charges, such as a Refraction, may not be covered by your insurance. Also, you may have been dilated at your appointment today whichcan affect your ability to see up close or drive safely, and cause light sensitivity. Please use caution and wear sunglasses. Thank you for allowing [facility] to provide you with care. Please notify us if you haveany questions or concerns regarding your eye care needs. documented in this encounter Progress Notes * Sandy Rivero MD - 06/06/2024 9:45 AM CDT CC: Office Visit (Eye) (Follow up Bacterial Conjuctivitis OU) HPI: Patient here today for follow up on bacterial conjuctivitis OU Patient notes matter/crusting/ithing is better Still notes watering, redness States consistent with eye drops/wipes No using warm compress Eye Meds: Brimonidine OS BID Latanoprost OU at bedtime Neopolydex OU TID Emycin hermila OU at bedtime Ocusoft OU QAM Assessment & Plan: Rosaceaform blepharoconjunctivitis: discharge improved and ocular appearance better but patient still irritated, tearing and has moderate lid findings persistent CONTINUE Erythromycin to lids at bedtime Neopolydex (Maxitrol), decrease to twice daily for 1 week then once daily for 1 week then stop Ocusoft in the morning, use a circular motion at the lash base and wipe away ADD Warm compresses for at least 10 minutes each evening Doxycycline, 50 mg twice daily for 1 week then once daily for 3 more weeks Think about/discuss with colleagues the meibo option The Cures Act makes medical notes like these available to patients in the interest of transparency. However, be advised that this is a medical document. It is intended as [id number]-zqkr communication and fact documentation. It is written in medical language and may contain abbreviations or verbiage that are unfamiliar. It may appear blunt or direct. Medical documents are intended to carry relevant information, facts as evident, and the clinical opinion of the practitioner. documented in this encounter Plan of Treatment Upcoming Encounters Date Type Department Care Team (Late st Contact Info) Description 07/23/2024 1:30 PM CDT Office Visit [facility] [address] [place] [address] Sandy Rivero MD [address] [place] [address] 09/26/2024 1:00 PM SEAMSTRESS FITTER Appointment [facility] [address] [place] [address] Polo Urrutia, DO [address] [facility] [address] [place] [address] 10/07/2024 1:00 PM SEAMSTRESS FITTER Office Visit [facility] [address] [place] [address] Landry Chavez MD [address] [place] [address] 12/15/2024 2:00 PM SEAMSTRESS FITTER Office Visit [facility] Ear Nose Throat [address] [place] [phone] Milagro Fernandez Au.D. [address] [place] [phone] 07/08/2025 8:00 AM CDT Lab/Non-Imaging [facility] [address] [place] [address] 07/08/2025 8:45 AM CDT Office Visit [facility] [address] [place] [address] Polo Urrutia DO [address] [place] [address] documented as of this encounter Visit Diagnoses Diagnosis Rosacea blepharoconjunctivitis- Primary documented in this encounter Additional Health Concerns Assessment Noted Time PHQ-9 Depression Total Score: 3 09/28/20 15 5:07 PM SEAMSTRESS FITTER A fall risk assessment has been complete d for the patient 11/14/2022 9:17 AM SEAMSTRESS FITTER documented as of this encounter Care Teams Physicist Light And Optics Relationship Specialty Start Date End Date Polo Urrutia DO [address] [place] [address] PCP - General Family Medicine 04/22/19 documented as of this encounter
--- OUTSIDE RECORDS SUMMARY | 2024-07-15 21:38 | XMS_ITS | Encounter Summary ---
Author Organization [employer], and Affiliates Address [address] [place] [address] Care Team Providers Care Broadcast Field Supervisor Name Role Phone GhadaPolo garrison Primary Care Provider Reason for Visit * Reason Comments Office Visit (Eye) Mac check OS for pos crhistopher Bangura Encounter Details Date Type Department Care Team (Latest Contact Info) Description 06/24/2024 9:00 AM CDT Office Visit [address] [address] Landry Chavez MD [address] [place] [address] [phone] Central retinal vein occlusion with macular edema of left eye (*) (Primary Dx); Bacterial conjunctivitis of both eyes Social History Tobacco Use Types Packs/Day Years [...] week 05/09/2023 How often do you attend [facility] or mormonism services? More than 4 times per year 05/09/2023 Do you belong to any clubs o r organizations such as roman catholic groups, unions, fraternal or athletic groups, or [...] and heating? Not hard at all 05/09/2023 [facility] of Occupat ional Health - Occupational Stress [...] place to sleep or slept in a detention (including now)? No 05/09/2023 Alcohol Use Answer [...] Sex Assigned at Male 10/19/2021 4:19 AM TYPEWRITER ASSEMBLER Gender Identity Male 10/19/2021 4:19 AM TYPEWRITER ASSEMBLER Sexual Orientation Choose not to disclose 2023 3:33 PM TYPEWRITER ASSEMBLER documented as of this encounter Patient Instructions * Patient Instructions* Felisa Meléndez OSC - 06/24/2024 9:00 AM CDT Follow up as recommended by your doctor. Please be aware that some charges, such as a Refraction, may not be covered by your insurance. Also, you may have been dilated at your appointment today whichcan affect your ability to see up close or drive safely, and cause light sensitivity. Please use caution and wear sunglasses. Thank you for allowing [facility] to provide you with care. Please notify us if you haveany questions or concerns regarding your eye care needs. CARE OF THE EYE AFTER EYLEA INJECTION When you leave the office after your EYLEA Injection, there are no activity restrictions. You should have a return appointment scheduled to see Dr. Chavez for your follow-up. Important symptoms to watch for are: Increasing pain Increasing redness Decreasing vision If you notice any of these 3 symptoms or have any questions, you may call our office number, which is answered 24 hours a day. Also continue checking your [employer] once a week and take your eye supplements. or documented in this encounter Progress Notes * Landry Chavez MD - 06/24/2024 9:00 AM CDT CC: Office Visit (Eye) (Mac check OS for possible Eylea/) HPI: Mac check OS for possible Eylea Has seen Dr Rivero for conjunctivitis (f/u on Sunday) OS tearing again Va stable No other issues to report Compliant w/ gtts Eye Meds: Brimonidine OS BID Latanoprost OU at bedtime Damian/Poly/Dex OU QD Assessment & Plan: 1. 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 OHTN OS - IOP stable - cont brimonidine bid - cont latanoprost qhs - 10-12wk Dr. Marcos for DELORIS next available 3. LLL papilloma - t/c excision - pt may call to schedule 4. Bacterial blepharoconjunctivitis OU - essentially resolved - call w/ any problems - d/c maxitrol - recheck w/ Dr. 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 Singh for SNIP - pt considering DETAILS OF PROCEDURE Eye: Left Pre-treatment: Ofloxacin 0.3% Prep: Betadine applied to bulbar conjunctiva Topical Anesthesia: 4% Lidocaine Dose: Eylea (Aflibercept) 2 mg/0.05 mL Sample: No Location: 5-7 o???clock meridian 3.5 mm posterior to limbus Post injection topical therapy (if any) none Patient counseled to call if there is a decrease in vision or increase in discomfort. Follow-up: Schedule within 10-12 weeks. Treat and Extend: Left Glaucoma: Monitor IOP/ Glaucoma Eylea (Aflibercept) 2 mg/0.05 mL Sample: NO Lot number [id number] Exp 01/2025 Refrigerate at 36 to 46 F Protect from light The Cures Act makes medical notes like these available to patients in the interest of transparency. However, be advised that this is a medical document. It is intended as mucq-hp-dala communication and fact documentation. It is written in medical language and may contain abbreviations or verbiage that are unfamiliar. It may appear blunt or direct. Medical documents are intended to carry relevant information, facts as evident, and the clinical opinion of the practitioner. documented in this encounter Procedure Notes * Landry Chavez MD - 06/24/2024 9:00 AM CDTAssociated Order(s): OPHTH OCT SCAN RETINA OS; CRVO w/ ME, reliable Stable mild ME, Eylea, 16wk documented in this encounter Plan of Treatment Upcoming Encounters Date Type Department Care Team (Late st Contact Info) Description 07/23/2024 1:30 PM CDT Office Visit [facility] [address] [place] [address] Sandy Rivero MD [address] [place] [address] 09/26/2024 1:00 PM TYPEWRITER ASSEMBLER Appointment [facility] [address] [place] [address] Polo Urrutia, DO [address] [address] 10/07/2024 1:00 PM TYPEWRITER ASSEMBLER Office Visit [facility] [address] [place] [address] Landry Chavez MD [address] [place] [address] 12/15/2024 2:00 PM TYPEWRITER ASSEMBLER Office Visit [facility] Ear Nose Throat [address] [place] [address] Milagro Fernandez Au.D. [address] [place] [address], [place] [address] 07/08/2025 8:00 AM CDT Lab/Non-Imaging [facility] [address] [place] [address] 07/08/2025 8:45 AM CDT Office Visit [facility] [address] [place] [address] Polo Urrutia DO [address] [place] [address] documented as of this encounter Procedures Procedure Name Priority Date/Time Associated Diagnosis Comments OPHTH OCT SCAN RETINA Routine 06/24/2024 9:00 AM CDT Central retinal vein occlusion with macular edema of left eye (*) documented in this encounter Results * OPHTH OCT SCAN RETINA (06/24/2024 9:00 AM CDT) Narrative Landry Chavez MD - 06/24/2024 9:00 AM CDT Landry Chavez MD ? 06/24/2024 10:06 AM OS; CRVO w/ ME, reliable Stable mild ME, Eylea, 16wk Landry Chavez MD [facility] documented in this encounter Visit Diagnoses Diagnosis Central retinal vein occlusion with macular edema of left eye (*)- Primary Bacterial conjunctivitis of both eyes documented in this encounter Additional Health Concerns Assessment Noted Time PHQ-9 Depression Total Score: 3 09/28/20 15 5:07 PM TYPEWRITER ASSEMBLER A fall risk assessment has been complete d for the patient 11/14/2022 9:17 AM TYPEWRITER ASSEMBLER documented as of this encounter Care Teams Broadcast Field Supervisor Relationship Specialty Start Date End Date Polo Urrutia DO [address] [place] [address] PCP - General Family Medicine 04/22/19 documented as of this encounter
--- OUTSIDE RECORDS SUMMARY | 2024-07-15 21:38 | XMS_ITS | Encounter Summary ---
Author Organization [facility], and Affiliates Address [address] [place] [address] Care Team Providers Care Childcare Director Name Role Phone Polo Urrutia DO Primary Care Provider [phone] Encounter Details Date Type Department Care Team (Latest Contact Info) Description 06/30/2024 Travel Social History Tobacco Use Types Packs/Day Years Used Date Smoking Tobacco: Never Smokeless Tobacco: Never Alcohol Use Standard Drinks/Week Comments No 0 (1 standard drink = 0.6 oz pur e alcohol) occ [facility] Utilities Answer Date Recorded In the past 12 months has [employer] electric, gas, oil, or water company threatened to shut off services in your home? No 06/30/2024 Social Connection and Isolat ion Panel [NHANES] Answer Date Recorded In a typical week, how many times do you talk on the phone with family, friends, or neighbors? Never 06/30/2024 How often do you get togethe r with friends or relatives? Once a week 06/30/2024 How often do you attend chur ch or tenriism services? More than 4 times per year 06/30/2024 Do you belong to any clubs o r organizations such as rastafarian groups, unions, fraternal or athletic groups, or [...] and heating? Not hard at all 05/09/2023 [facility] of Occupat ional Health - Occupational Stress [...] Sex Assigned at Male 10/19/2021 4:19 AM HORSE RACETRACK MANAGER Gender Identity Male 10/19/2021 4:19 AM HORSE RACETRACK MANAGER Sexual Orientation Choose not to disclose 2023 3:33 PM HORSE RACETRACK MANAGER documented as of this encounter Plan of Treatment Upcoming Encounters Date Type Department Care Team (Late st Contact Info) Description 07/23/2024 1:30 PM CDT Office Visit [facility] [address] [place] [address] Sandy Rivero MD [address] [place] [address] 09/26/2024 1:00 PM HORSE RACETRACK MANAGER Appointment [facility] [address] [place] [address] Polo Urrutia DO [address] [place] [address] 10/07/2024 1:00 PM HORSE RACETRACK MANAGER Office Visit [facility] [address] [place] [address] Landry Chavez MD [address] [place] [address] 12/15/2024 2:00 PM HORSE RACETRACK MANAGER Office Visit [facility] Ear Nose Throat [address] [place] [phone] Milagro Fernandez Au.D. [address] [place] [phone] 07/08/2025 8:00 AM CDT Lab/Non-Imaging [facility] [address] [place] [address] 07/08/2025 8:45 AM CDT Office Visit [facility] [address] [place] [address] Polo Urrutia DO [address] [place] [address] documented as of this encounter Visit Diagnoses Not on filedocumented in this encounter Additional Health Concerns Assessment Noted Time PHQ-9 Depression Total Score: 0 06/30/20 11:14 AM CDT A fall risk assessment has been complete d for the patient 11/14/2022 9:17 AM HORSE RACETRACK MANAGER documented as of this encounter Care Teams Childcare Director Relationship Specialty Start Date End Date Polo Urrutai DO [address] [place] [address] PCP - General Family Medicine 04/22/19 documented as of this encounter
--- OUTSIDE RECORDS SUMMARY | 2024-07-15 21:38 | XMS_ITS | Encounter Summary ---
Author Organization [facility], and Affiliates Address [address] [place] [address] Care Team Providers Care Polishing Wheel Setter Name Role Phone Polo Urrutia DO Primary Care Provider Reason for Visit * Reason Onset Date Comments UTI 07/15/2024 Encounter Details Date Type Department Care Team (Late st Contact Info) Description 07/15/2024 Nurse Triage [facility] [address] [place] [address] Polo Urrutia DO [address] [facility] [address] [place], [place] [phone] UTI Social History Tobacco Use Types Packs/Day Years Used Date Smoking Tobacco: Never Smokeless Tobacco: Never Alcohol Use Standard Drinks/Week Comments Yes 0 (1 standard drink = 0.6 oz pur e alcohol) occ [facility] Utilities Answer Date Recorded In the past 12 months has [employer], gas, oil, or water [employer] threatened to shut off services in your home? No 06/30/2024 Social Connection and Isolat ion Panel [NHANES] Answer Date Recorded In a typical week, how many times do you talk on the phone with family, friends, or neighbors? Never 06/30/2024 How often do you get togethe r with friends or relatives? Once a week 06/30/2024 How often do you attend [facility] or yazdanism services? More than 4 times per year 06/30/2024 Do you belong to any clubs o r organizations such as mandaeism groups, unions, fraternal or athletic groups, or [...] and heating? Not hard at all 05/09/2023 [facility] of Occupat ional Health - Occupational Stress [...] place to sleep or slept in a fdc (including now)? No 05/09/2023 Alcohol Use Answer [...] Sex Assigned at Male 10/19/2021 4:19 AM DREDGE WORKER Gender Identity Male 10/19/2021 4:19 AM DREDGE WORKER Sexual Orientation Choose not to disclose 2023 3:33 PM DREDGE WORKER documented as of this encounter Miscellaneous Notes * Telephone Encounter - Julissa Seymour RN - 07/15/2024 8:12 PM CDT reports last night patient got up more frequently during night. Now having urgency, frequency,incontinence. Urine is clear yellow. Blood sugar 110. Emergent/urgent symptoms reviewed. Instructed to be evaluated within 24 hours reports they areout of town but there is an Urgent Care down the block from hotel so will go there. Reason for Disposition Urinating more frequently than usual (i.e., frequency) OR new-onset of the feeling of an urgent need to urinate (i.e., urgency) Protocols used: Urinary Apkrigco-A-XO documented in this encounter Plan of Treatment Upcoming Encounters Date Type Department Care Team (Late st Contact Info) Description 07/23/2024 1:30 PM CDT Office Visit [facility] [address] [place] [address] Sandy Rivero MD [address] [place] [address] 09/26/2024 1:00 PM DREDGE WORKER Appointment [facility] [address] [place] [address] Polo Urrutia DO [address] [place] [address] 10/07/2024 1:00 PM DREDGE WORKER Office Visit [facility] [address] [place] [address] Landry Chavez MD [address] [place] [address] 12/15/2024 2:00 PM DREDGE WORKER Office Visit [facility] Ear Nose Throat [address] [place] [phone] Milagro Fernandez Au.D. [address] [place] [address] 07/08/2025 8:00 AM CDT Lab/Non-Imaging [facility] [address] [place] [address] 07/08/2025 8:45 AM CDT Office Visit [facility] [address] [place] [address] Polo Urrutia DO [address] [place] [address] documented as of this encounter Visit Diagnoses Not on filedocumented in this encounter Additional Health Concerns Assessment Noted Time PHQ-9 Depression Total Score: 0 06/30/20 24 11:14 AM CDT A fall risk assessment has been complete d for the patient 11/14/2022 9:17 AM DREDGE WORKER documented as of this encounter Care Teams Polishing Wheel Setter Relationship Specialty Start Date End Date Polo Urrutia DO [address] [place] [address] PCP - General Family Medicine 04/22/19 documented as of this encounter
--- OUTSIDE RECORDS SUMMARY | 2024-07-15 21:38 | XMS_ITS | Clinical Summary ---
Author Organization [facility], Sisi garcia, and Affiliates Address [address] [place] [address] Care Team Providers Care Pharmacy Manager Name Role Phone GhadaPolo sher Tremaine DAMICO Primary Care Provider [phone] Allergies No known active allergies Medications Medication Sig Dispensed Refills Start Date End Date Status aspirin 81 MG oral tablet Take 81 mg by mouth every day. Active brimonidine (ALPHAGAN) 0.2 % eye eye drops Place 1 drop into both eyes 2 (two) times a day. 30 mL 3 3 Active doxycycline monohydrate (ADOXA) 50 mg oral tabletIndication s:Rosacea Take 1 tablet (50 mg total) by mouth twice daily Use twice daily for 1 week, then once daily for 3 more weeks. Indications: Rosacea 35 tablet 1 4 Active neomycin-polymyx in-dexAMETHasone (MAXITROL) 3.5-10,000-0.1 eye SUSP SHAKE LIQUID AND INSTILL 1 DROP IN BOTH EYES THREE TIMES DAILY 5 mL 4 Active tamsulosin (FLOMAX) 0.4 mg oral capsuleIndicatio ns:Benign Prostatic Hypertrophy Take 1 capsule (0.4 mg total) by mouth once daily. Indications: Benign Enlargement of Prostate 90 capsule 4 4 Active solifenacin (VESICARE) 5 mg oral tabletIndication s:Urinary Urgency Take 1 tablet (5 mg total) by mouth once daily. Indications: Urinary Urgency 90 tablet 4 4 Active simvastatin (ZOCOR) 20 mg oral tabletIndication s:Increased Serum Cholesterol Take 1 tablet (20 mg total) by mouth once daily. Indications: Increase in the Amount of Cholesterol in the Blood 90 tablet 4 4 Active amLODIPine (NORVASC) 5 mg oral tabletIndication s:Hypertension Take 1 tablet (5 mg total) by mouth once daily. Indications: High Blood Pressure Disorder 90 tablet 4 4 Active latanoprost (XALATAN) 0.005 % eye eye drops Place 1 drop into both eyes every night at bedtime. 4 07/01/20 Discontinued(The rapy completed) neomycin-polymyx in-dexAMETHasone (MAXITROL) 3.5-10,000-0.[address] 1 drop into both eyes three times daily. 5 mL 4 06/19/20 24 Discontinued amLODIPine (NORVASC) 5 mg oral tabletIndication s:Hypertension Take 1 tablet (5 mg total) by mouth once daily. Indications: High Blood Pressure Disorder 90 tablet 4 06/23/20 24 Discontinued(Reo rder) tamsulosin (FLOMAX) 0.4 mg oral capsuleIndicatio ns:Benign Prostatic Hypertrophy Take 1 capsule (0.4 mg total) by mouth once daily. Indications: Benign Enlargement of Prostate 90 capsule 4 06/23/20 24 Discontinued(Reo rder) simvastatin (ZOCOR) 20 mg oral tabletIndication s:Increased Serum Cholesterol Take 1 tablet (20 mg total) by mouth once daily. Indications: Increase in the Amount of Cholesterol in the Blood 90 tablet 4 06/23/20 24 Discontinued(Reo rder) solifenacin (VESICARE) 5 mg oral tabletIndication s:Urinary Urgency Take 1 tablet (5 mg total) by mouth once daily. Indications: Urinary Urgency 90 tablet 4 06/23/20 24 Discontinued(Reo rder) Active Problems Problem Noted Date Diagnosed Date Ocular hypertension of left eye 05/09/2022 Central retinal vein occlusi on with macular edema of left eye 08/01/2021 Benign prostatic hyperplasia with nocturia 04/27 Class 1 obesity due to exces s calories with serious comorbidity and body mass index (BMI) of 32.0 to 32.9 in adult 04/22/2019 Essential hypertension 03/30/2015 IFG (impaired fasting glucose) 08/22/2012 Dyslipidemia 06/12/2012 Allergic rhinitis 08/30/2006 Resolved Problems Problem Noted Date Diagnosed Date Resolved Date Tubular adenoma of colon 05/04/2021 Overview: Colon due 2021 Elevated PSA 04/04/2018 04/22/2019 BP check 04/26/2015 12/25/2016 HTN (hypertension) 06/12/2012 3 Hearing impairment 9 Encounters Date Type Department Care Team Description 07/15/2024 Nurse Triage [facility] [address] [place] [address] Polo Urrutia DO UTI 07/01/2024 3:15 PM CDT Office Visit [facility] [address] [place] [address] Polo Urrutia DO Encounter for screening and preventative care (Primary Dx); Central retinal vein occlusion with macular edema of left eye (*); Essential hypertension; Dyslipidemia; Class 1 obesity due to excess calories with serious comorbidity and body mass index (BMI) of 32.0 to 32.9 in adult; Snoring; Daytime somnolence; Screening PSA (prostate specific antigen); IFG (impaired fasting glucose) 07/01/2024 8:40 AM CDT Lab/Non-Imagi ng [place] [address] [place] [address] Screening PSA (prostate specific antigen); Essential hypertension; Dyslipidemia 06/30/2024 Travel 06/24/2024 9:00 AM CDT Office Visit [facility] [address] [place] [address] Landry Chavez MD Central retinal vein occlusion with macular edema of left eye (*) (Primary Dx); Bacterial conjunctivitis of both eyes 06/23/2024 2:30 PM CDT Office Visit [facility] [address] [place] [phone] Jim, Milgaro R, Au.D. Sensorineural hearing loss (SNHL), bilateral (Primary Dx) 06/22/2024 Travel 06/19/2024 Refill [facility] [address] [place] [address] Sandy Rivero MD Refill Request 06/17/2024 Travel 06/11/2024 Refill [facility] [address] [address] Polo Urrutia DO Refill Request 06/06/2024 9:45 AM CDT Office Visit [facility] [address] [place] [address] Sandy Rivero MD Rosacea blepharoconjunctivitis (Primary Dx) 06/05/2024 Travel 05/30/2024 9:30 AM CDT Office Visit [facility] [address] [place] [address] Sandy Rivero MD Bacterial conjunctivitis of both eyes (Primary Dx); Rosacea blepharoconjunctivitis 05/30/2024 Travel 04/22/2024 10:15 AM CDT Office Visit [facility] [address] [place] [id number] Landry Chavez MD Central retinal vein occlusion with macular edema of left eye (*) (Primary Dx) 04/22/2024 Travel 04/20/2024 Travel from Last 3 Months Immunizations Name Administration Dates Next Due Influenza High Dose 06/12/2024,08/19/2019,2017 Influenza Quadrivalent High Dose P-Free 08/01/20,08/16/2020 Influenza Quadrivalent P-Free 09/28/2015 Influenza Trivalent 08/09/2014,07/27/2013,2010 Influenza Trivalent Preservative-Free 09/17/2017 ,09/01/2016,08/22/2012 Moderna SARS-CoV-2 100 mcg/0 .5 mL MONOVALENT 02/02/2021,01/05/2021 Moderna Sars-cov-2 50 MCG/0. 25 ML Adult Booster Vaccine 05/09/2022,10/20/2021 Pneumo-Conjugate 13 10/02/2017 Pneumococcal 23 04/22/2019 Td Preservative-Free 05/05/2021 Tdap > 7 Years 08/14/2011 Family History Medical History Relation Comments Stroke Father Cataracts Mother Diabetes Mother Glaucoma Mother Heart/Vascular Mother AR Relation Status Comments Father Maternal Grandfather Maternal Grandmother Mother Paternal Grandfather Paternal Grandmother Social History Tobacco Use Types Packs/Day Years Used Date Smoking Tobacco: Never Smokeless Tobacco: Never Alcohol Use Standard Drinks/Week Comments Yes 0 (1 standard drink = 0.6 oz pur e alcohol) [facility] Utilities Answer Date Recorded In the past 12 months has e electric, gas, oil, or water company threatened [...] often do you attend chur ch or lutheran services? More than 4 times per year 06/30/2024 Do you belong to any clubs o r organizations such as yazidi groups, unions, fraternal or athletic groups, or [...] and heating? Not hard at all 05/09/2023 [facility] [place] [facility] - Occupational Stress [...] Sex Assigned at Male 10/19/2021 4:19 AM [employer]PER[employer]OR [employer] Gender Identity Male 10/19/2021 4:19 AM [employer] Sexual Orientation Choose not to disclose 2023 3:33 PM [employer] Last Filed Vital Signs Vital Sign Reading Time Taken Comments Blood Pressure 112/78 07/01/2024 3:05 PM CDT Pulse 82 07/01/2024 3:05 PM CDT Temperature 36.4 ??C (97.5 ??F) 11/17/2023 11:[address] Respiratory Rate 18 11/17/2023 11:45 AM [employer]OR [employer] Oxygen Saturation 93% 07/01/2024 3:05 PM CDT Inhaled Oxygen Concentration - - Weight 108 kg (238 lb) 07/01/2024 3:05 PM CDT Height 180.3 cm (5' 11) 07/01/2024 3:05 PM CDT Body Mass Index 33.19 07/01/2024 3:05 PM CDT Plan of Treatment Upcoming Encounters Date Type Department Care Team (Late st Contact Info) Description 07/23/2024 1:30 PM CDT Office Visit [facility] [address] [place] [address] Sandy Rivero MD [address] [place] [address] 09/26/2024 1:00 PM [employer] Appointment [facility] [address] [place] [address] Polo Urrutia DO [address] [place] [address] 10/07/2024 1:00 PM SUPER[employer]OR [employer]PER[employer] Office Visit [address] [address] Landry Chavez MD [address] [place] [address] 12/15/2024 2:00 PM SUPERVISOR [employer]PER[employer] Office Visit [facility] [address] [place] [phone] Milagro Fernandez Au.D. [address] [place] [phone] 07/08/2025 8:00 AM CDT Lab/Non-Imaging [facility] [address] [place] [address] 07/08/2025 8:45 AM CDT Office Visit [facility] [address] [place] [address] Polo Urrutia DO [address] [place] [address] Health Maintenance Due Date Last Done Comments Shingles (1 of 2) 2002 COVID-19 Vaccine ( season) 2024 05/09/2022, 10/20/2021, 02/02/2021, Additional history exists RSV Adult 60+ and patients (Shared Decision Making) (1 - 1-dose 75+ series) 2027 Colonoscopy (Heightened Surveillance) 11/14/2027 11/14/2022, 11/14/2022, 10/18/2017, Additional history exists DTaP/Tdap/Td/Tetanus (3 - Td or Tdap) 05/05/2031 05/05/2021, 08/14/2011 Pneumococcal 65+ Completed 04/22/2019, 10/02/2017 Hep C Screening Completed 05/11/2023 Flu 6M+ Completed 06/12/2024, 01/2021, 08/16/2020, Additional history exists Hep B Aged Out No longer eligi ble based on patient's age to complete this topic Procedures Procedure Name Priority Date/Time Associated Diagnosis Comments JUST IN CASE LAVENDER TOP TUBE Routine 07/01/2024 8:50 AM CDT Dyslipidemia BASIC METABOLIC PANEL Routine 07/01/2024 8:42 AM CDT Essential hypertension ALT/SGPT, BLOOD Routine 07/01/2024 8:42 AM CDT Dyslipidemia LIPID PANEL WITH REFLEX LDL Routine 07/01/2024 8:42 AM CDT Dyslipidemia MICROALBUMIN/CREAT RATIO,RANDOM URINE Routine 07/01/2024 8:42 AM CDT Essential hypertension PROSTATIC SPECIFIC AG, SCREEN Routine 07/01/2024 8:42 AM CDT Screening PSA (prostate specific antigen) OPHTH OCT SCAN RETINA Routine 06/24/2024 9:00 AM CDT Central retinal vein occlusion with macular edema of left eye (*) HEARING AID REPAIR/MODIFYING Routine 06/23/2024 2:32 PM CDT Sensorineural hearing loss (SNHL), bilateral HEARING AID REPAIR/MODIFYING Routine 06/23/2024 2:32 PM CDT Sensorineural hearing loss (SNHL), bilateral OPHTH OCT SCAN RETINA Routine 04/22/2024 10:15 AM CDT Central retinal vein occlusion with macular edema of left eye (*) HEPATITIS C ANTIBODY W/REFLEX HCV BY QUANT NAAT ([facility] ONLY) Routine 05/11/2023 9:14 AM CDT Need for hepatitis C screening test COLONOSCOPY ([facility] ONLY) Routine 11/14/2022 9:32 AM SUPERVISOR [employer] from Last 3 Months or Most Recently Relevant to Health Maintenance Results * JUST IN CASE LAVENDER TOP TUBE (07/01/2024 8:50 AM CDT) Pathologist [facility] [place] EXTRA LAVENDER Extra Lavender 07/01/2024 10:08 AM CDT [facility] Blood Venipuncture / Unknown 07/01/2024 8:50 AM CDT 07/01/2024 8:50 AM CDT Polo Urrutia DO LAB - NO IN BASKET N O LAB TAB [facility] [address] [place] [address] * MICROALBUMIN/CREAT RATIO,RANDOM URINE (07/01/2024 8:42 AM CDT) Pathologist [facility] [place] MICROALBUMIN 10.0 Reference range not established mg/L 07/01/2024 9:27 AM CDT [facility] CREATININE, URINE 161 39 - 259 mg/dL 07/01/2024 9:27 AM CDT [facility] ALBUMIN/CREAT RATIO 6 0 - 20 mg/g 07/01/2024 9:27 AM CDT [facility] Urine Non Blood Collection / Unknown 07/01/2024 8:42 AM CDT 07/01/2024 8:42 AM CDT Narrative [facility] - 07/01/2024 9:27 AM CDT Test values are reported as an Albumin/Creatinine ratio. An Albumin/Creatinine ratio of 300 MG/G or higher suggests overt albuminuria. Thus, microalbuminuria has been defined as an Albumin/Creatinine ratio of 17-299 MG/G for males. Patients taking cephalosporin antibiotics may have a falsely elevated urine creatinine value that would result in a falsely low Albumin/Creatinine ratio. Any patient who has Albumin/Creatinine ratio in the positive microalbuminuria range needs to have this confirmed with a second sample because of the biologic variability. If there is discrepancy, a third sample is recommended. If two out of the three results are in the positive microalbuminuria range, this is evidence for incipient nephropathy and warrants increased efforts at glucose control, blood pressure control and possibly protein restrictions. Polo Urrutia DO URINE ORDERABLES [facility] [address] [place], [place] [id number] * (ABNORMAL) BASIC METABOLIC PANEL (07/01/2024 8:42 AM CDT) GLUCOSE 108(H) 70 - 100 mg/dL 07/01/2024 9:14 AM CDT [facility] UREA NITROGEN 13 9 - 23 mg/dL 07/01/2024 9:14 AM CDT [facility] CREATININE 1.04 0.73 - 1.18 mg/dL 07/01/2024 9:14 AM CDT [facility] eGFR 77 >=60 mL/Min/1.7 3 sqm 07/01/2024 9:14 AM CDT [facility] Comment:Calculation based on the Chronic Kidney Disease Epidemiology Collaboration (CKD-EPI) equation refit without adjustment for race. SODIUM 142 136 - 145 mmol/L (mEq/L) 07/01/2024 9:14 AM CDT [facility] POTASSIUM 4.3 3.5 - 5.1 mmol/L (mEq/L) 07/01/2024 9:14 AM CDT [facility] CHLORIDE 113(H) 101 - 112 mmol/L (mEq/L) 07/01/2024 9:14 AM CDT [facility] TOTAL CO2 25 20 - 31 mmol/L (mEq/L) 07/01/2024 9:14 AM CDT [facility] CALCIUM 9.5 8.7 - 10.4 mg/dL 07/01/2024 9:14 AM CDT [facility] Blood Venipuncture / Unknown 07/01/2024 8:42 AM CDT 07/01/2024 8:42 AM CDT Polo Urrutia DO LAB BLOOD ORDERABLES [facility] [address] [place] [address] * PROSTATIC SPECIFIC AG, SCREEN (07/01/2024 8:42 AM CDT) PROSTATE SPC AG,SCREEN 1.660 <4.000 ng/ml 07/01/2024 3:52 PM CDT [facility] Blood Venipuncture / Unknown 07/01/2024 8:42 AM CDT 07/01/2024 8:42 AM CDT Narrative [facility] - 07/01/2024 3:52 PM CDT Samples should not be taken from patients receiving therapy with high biotin doses until at least 8 hours following the last biotin administration.?? High biotin levels in patient samples may falsely increase or decrease the measured value. Patient heterophile antibodies may interfere with immunoassays, e.g. HAMA. Polo Urrutia DO LAB BLOOD ORDERABLES [facility] [address] [facility] [address] [address] [place] [address] * (ABNORMAL) LIPID PANEL WITH REFLEX LDL (07/01/2024 8:42 AM CDT) CHOLESTEROL 154 <200 mg/dL 07/01/2024 9:14 AM CDT [facility] Comment: Low-risk level (desirable): ?< 200 ?? mg/dL Moderate-risk level (borderline): ??200-239 mg/dL High-risk level: ? >= 240 ??mg/dL . TRIGLYCERIDE 160(H) <150 mg/dL 07/01/2024 9:14 AM CDT [facility] Comment: TRIGLYCERIDES: Normal ? Less than 150 ?mg/dl Borderline High Risk ? 150 - 199 ?mg/dl High Risk ?200 - 499 ?mg/dl Very High Risk ? Greater than 500 mg/dl HDL CHOLESTEROL 35(L) >50 mg/dL 9:14 AM CDT [facility] NON HDL CHOLESTEROL 119 <130 mg/dl 07/01/2024 9:14 AM CDT [facility] LDL 87 <=100 mg/dl 07/01/2024 9:14 AM T [facility] Comment: LDL CHOLESTEROL: Optimal ?Less than 100 ?mg/dl Near Optimal/Above Optimal ? 100 - 129 ?mg/dl Borderline High Risk ? 130 - 159 ?mg/dl High Risk ?160 - 189 ?mg/dl Very High Risk ? Greater than 190 mg/dl CHOL/HDL RATIO 4.4 <4.5 07/01/2024 9:14 AM CDT [facility] Comment: CHOL/HDL RATIO: Normal ? Less than 4.5 Increased Risk ? Greater than 4.5 Blood Venipuncture / Unknown 07/01/2024 8:42 AM CDT 07/01/2024 8:42 AM CDT Polo Urrutia DO LAB BLOOD ORDERABLES Performing Organization Address [facility] de Phone Number [facility] [address] [place], [place] [id number] * ALT/SGPT, BLOOD (07/01/2024 8:42 AM CDT) SGPT/ALT 20 10 - 49 U/L 07/01/2024 9:14 AM CDT [facility] Blood Venipuncture / Unknown 07/01/2024 8:42 AM CDT 07/01/2024 8:42 AM CDT Polo Urrutia DO LAB BLOOD ORDERABLES Performing Organization Address [facility] de Phone Number [facility] [address] [place], [place] [phone] * OPHTH OCT SCAN RETINA (06/24/2024 9:00 AM CDT) Only the most recent of2 resultswithin the time period is included. Narrative Landry Chavez MD - 06/24/2024 9:00 AM CDT Landry Chavez MD ? 06/24/2024 10:06 AM OS; CRVO w/ ME, reliable Stable mild ME, Eylea, 16wk Landry Chavez MD OPHTHALMOLOGY SERVIC ES * HEPATITIS C ANTIBODY W/REFLEX HCV BY QUANT NAAT ([facility] ONLY) (05/11/2023 9:14 AM CDT) HEP C ANTIBODY Non Reactive Non Reactive BLN LAB [place] METHOD 05/12/2023 9:32 AM CDT [facility] Blood Venipuncture / Unknown 05/11/2023 9:14 AM CDT 05/11/2023 9:14 AM CDT Polo Urrutia DO LAB BLOOD ORDERABLES Performing Organization Address [facility]/State/[facility] Co de Phone Number [facility] [address] [address] * COLONOSCOPY ([facility] ONLY) (11/14/2022 9:32 AM SUPERVISOR [employer]LL [employer]PERATION) 11/14/2022 9:32 AM SUPERVISOR CELL OPERATION Impressions [facility] RADIOLOGY & PROCEDURES - 11/14/2022 10:15 AM SUPERVISOR CELL [employer]PER[employer] [facility] Patient Name: Georges Rodriguezohhieu Procedure Date: 11/14/2022 9:32 AM Date of : 1950 Age: 72 Admit Type: Outpatient Procedure: ? Colonoscopy Indications: ? polyp follow up Providers: ? SARINA SILVA MD (Doctor) Referring MD: ?Polo Urrutia MD Medicines: ? Propofol per Anesthesia Complications: ? No immediate complications. Procedure: ? A History and Physical has been performed. The patient's ? medication list and allergies have been reviewed. The ? alternatives, risks and benefits of the procedure ? including the sedation options and risks were discussed ? with the patient. All questions were answered and informed ? consent was obtained. Patient identification and proposed ? procedure were verified prior to the procedure by the ? physician and the nurse in the procedure area. ? Cardiopulmonary status is stable. Throughout the ? procedure, the patient's blood pressure, pulse and oxygen ? saturation was monitored. Low flow oxygen was used. The ? patient was placed in the left-lateral decubitus ? positionand a digital rectal exam was performed. The ? Endoscope was introduced through the anus and advanced to ? the the cecum, identified by appendiceal orifice and ? ileocecal valve. Findings: ? No polyps. Minor diverticulosis. Small internal hemorrhoids. Impression: ?No polyps. Minor diverticulosis. Small internal ? hemorrhoids. Recommendation: ?No routine follow up colonoscopy is required based on age ? criteria. E-Signed By: ??MD SARINA Fitch MD 11/14/2022 10:14:39 AM This report has been electronically signed. Number of Addenda: 0 Note Initiated On: 11/14/2022 9:32 AM CC Letter to: ? Narrative Procedure Note Sarina Silva MD - 11/14/2022 IMPRESSION: [facility] Patient Name: Georges Hendricks Procedure Date: 11/14/2022 9:32 AM Date of : 1950 Age: 72 Admit Type: Outpatient Procedure: Colonoscopy Indications: polyp follow up Providers: SARINA SILVA MD (Doctor) Referring MD: Polo Urrutia MD Medicines: Propofol per Anesthesia Complications: No immediate complications. Procedure: A History and Physical has been performed. Thepatient's medication list and allergies have been reviewed. The alternatives, risks and benefits of the procedure including the sedation options and risks were discussed with the patient. All questions were answered andinformed consent was obtained. Patient identification andproposed procedure were verified prior to the procedure by the physician and the nurse in the procedure area. Cardiopulmonary status is stable. Throughout the procedure, the patient's blood pressure, pulse andoxygen saturation was monitored. Low flow oxygen was used. The patient was placed in the left-lateral decubitus positionand a digital rectal exam was performed. The Endoscope was introduced through the anus and advancedto the the cecum, identified by appendiceal orifice and ileocecal valve. Findings: No polyps. Minor diverticulosis. Small internal hemorrhoids. Impression: No polyps. Minor diverticulosis. Small internal hemorrhoids. Recommendation: No routine follow up colonoscopy is required based onage criteria. E-Signed By: MD SARINA Fitch MD 11/14/2022 10:14:39 AM This report has been electronically signed. Number of Addenda: 0 Note Initiated On: 11/14/2022 9:32 AM CC Letter to: Sarina Silva MD PROCEDURES [facility] RADIOLOGY & PROCEDURES from Last 3 Months or Most Recently Relevant to Health Maintenance Advance Directives For more information, please contact: [phone] Documents on File Type Date Recorded Patient Certified Low Vision Therapist Expl anation Advance Directives and Livin g Will 11/05/2020 11:59 AM POA [id number] * Full Code (Latest Code Status on File) Date Activated Date Inactivated Comments 04/04/2018 10:07 AM Care Teams Pharmacy Manager Relationship Specialty Start Date End Date Polo Urrutia DO [address] [place] [address] PCP - General Family Medicine 04/22/19
--- OUTSIDE RECORDS SUMMARY | 2024-07-15 21:38 | XMS_ITS | Encounter Summary ---
Author Organization [facility], and Aff[facility]ates Address [address] [place] [address] Care Team Providers Care Certified Veterinary Technician Name Role Phone Polo Urrutia DO Primary Care Provider [phone] Encounter Details Date Type Department Care Team (Late st Contact Info) Description 07/01/2024 8:40 AM CDT Lab/Non-Imagbelle [facility] [address] [place] [address] Screening PSA (prostate specific antigen); Essential hypertension; Dyslipidemia Social History Tobacco Use Types Packs/Day Years Used Date Smoking Tobacco: Never Smokeless Tobacco: Never Alcohol Use Standard Drinks/Week Comments Yes 0 (1 standard drink = 0.6 oz pur e alcohol) occ [facility] Utilities Answer Date Recorded In the past 12 months has [employer], gas, oil, or water [employer] threatened to shut off services in your home? No 06/30/2024 Social Connection and Isolat ion Panel [NHANES] Answer Date Recorded In a typical week, how many times do you talk on the phone with family, friends, or neighbors? Never 06/30/2024 How often do you get togethe r with friends or relatives? Once a week 06/30/2024 How often do you attend chur or sabianist services? More than 4 times per year 06/30/2024 Do you belong to any clubs o r organizations such as synagogue groups, unions, fraternal or athletic groups, or [...] and heating? Not hard at all 05/09/2023 [facility] Occupat ional [facility] - Occupational Stress Questionnaire Answer Date Recorded [...] place to sleep or slept in a residential (including now)? No 05/09/2023 Alcohol Use Answer [...] Sex Assigned at Male 10/19/2021 4:19 AM HOSPITAL INSURANCE CLERK Gender Identity Male 10/19/2021 4:19 AM HOSPITAL INSURANCE CLERK Sexual Orientation Choose not to disclose 2023 3:33 PM HOSPITAL INSURANCE CLERK documented as of this encounter Plan of Treatment Upcoming Encounters Date Type Department Care Team (Late st Contact Info) Description 07/23/2024 1:30 PM CDT Office Visit [address] [address] Sandy Rivero MD [address] [place] [address] 09/26/2024 1:00 PM HOSPITAL INSURANCE CLERK Appointment [facility] [address] [place] [address] Polo Urrutia, DO [address] [address] 10/07/2024 1:00 PM HOSPITAL INSURANCE CLERK Office Visit [place] [address] [place] [address] Landry Chavez MD [address] [place] [address] 12/15/2024 2:00 PM HOSPITAL INSURANCE CLERK Office Visit [facility] Ear Nose Throat [address] [place] [phone] Milagro Fernandez Au.D. [address] [place] [phone] 07/08/2025 8:00 AM CDT Lab/Non-Imaging [facility] [address] [place] [address] 07/08/2025 8:45 AM CDT Office Visit [facility] [address] [place], [place] [phone] Polo Urrutia DO [address] [place], [place] [phone] documented as of this encounter Procedures Procedure Name Priority Date/Time Associated Diagnosis Comments JUST IN CASE LAVENDER TOP TUBE Routine 07/01/2024 8:50 AM CDT Dyslipidemia MICROALBUMIN/CREAT RATIO,RANDOM URINE Routine 07/01/2024 8:42 AM CDT Essential hypertension BASIC METABOLIC PANEL Routine 07/01/2024 8:42 AM CDT Essential hypertension PROSTATIC SPECIFIC AG, SCREEN Routine 07/01/2024 8:42 AM CDT Screening PSA (prostate specific antigen) LIPID PANEL WITH REFLEX LDL Routine 07/01/2024 8:42 AM CDT Dyslipidemia ALT/SGPT, BLOOD Routine 07/01/2024 8:42 AM CDT Dyslipidemia documented in this encounter Results * JUST IN CASE LAVENDER TOP TUBE (07/01/2024 8:50 AM CDT) EXTRA LAVENDER Extra Lavender 07/01/2024 10:08 AM CDT [facility] Blood Venipuncture / Unknown 07/01/2024 8:50 AM CDT 07/01/2024 8:50 AM CDT Polo Urrutia DO LAB - NO IN BASKET N O LAB TAB [facility] [address] [place] [address] * (ABNORMAL) BASIC METABOLIC PANEL (07/01/2024 8:42 AM CDT) [facility] GLUCOSE 108(H) 70 - 100 mg/dL 07/01/2024 9:14 AM CDT [facility] UREA NITROGEN 13 9 - 23 mg/dL 07/01/2024 9:14 AM CDT [facility] CREATININE 1.04 0.73 - 1.18 mg/dL 07/01/2024 9:14 AM CDT [facility] eGFR 77 >=60 mL/Min/1.7 3 sqm 07/01/2024 9:14 AM CDT [facility] Comment:Calculation based on the Chronic Kidney Disease Epidemiology Collaboration (CKD-EPI) equation refit without adjustment for race. SODIUM 142 136 - 145 mmol/L (mEq/L) 07/01/2024 9:14 AM CDT [facility] POTASSIUM 4.3 3.5 - 5.1 mmol/L (mEq/L) 07/01/2024 9:14 AM CDT [facility] CHLORIDE 113(H) 101 - 112 mmol/L (mEq/L) 07/01/2024 9:14 AM CDT [facility] TOTAL CO2 25 20 - 31 mmol/L (mEq/L) 07/01/2024 9:14 AM CDT [facility] CALCIUM 9.5 8.7 - 10.4 mg/dL 07/01/2024 9:14 AM CDT [facility] Blood Venipuncture / Unknown 07/01/2024 8:42 AM CDT 07/01/2024 8:42 AM CDT Polo Urrutia DO LAB BLOOD ORDERABLES [facility] [address] [place] [address] * ALT/SGPT, BLOOD (07/01/2024 8:42 AM CDT) SGPT/ALT 20 10 - 49 U/L 07/01/2024 9:14 AM CDT [facility] Blood Venipuncture / Unknown 07/01/2024 8:42 AM CDT 07/01/2024 8:42 AM CDT Polo Urrutia DO LAB BLOOD ORDERABLES [facility] [address] [place] [address] * (ABNORMAL) LIPID PANEL WITH REFLEX LDL (07/01/2024 8:42 AM CDT) Pathologist [facility] CHOLESTEROL 154 <200 mg/dL 07/01/2024 9:14 AM CDT [facility] Comment: Low-risk level (desirable): ?< 200 ?? mg/dL Moderate-risk level (borderline): ??200-239 mg/dL High-risk level: ? >= 240 ??mg/dL . TRIGLYCERIDE 160(H) <150 mg/dL 07/01/2024 9:14 AM CDT [facility] Comment: TRIGLYCERIDES: Normal ? Less than 150 ?mg/dl Borderline High Risk ? 150 - 199 ?mg/dl High Risk ?200 - 499 ?mg/dl Very High Risk ? Greater than 500 mg/dl HDL CHOLESTEROL 35(L) >50 mg/dL 9:14 AM CDT [facility] NON HDL CHOLESTEROL 119 <130 mg/dl 07/01/2024 9:14 AM CDT [facility] LDL 87 <=100 mg/dl 07/01/2024 9:14 AM CDT [facility] Comment: LDL CHOLESTEROL: Optimal ?Less than 100 ?mg/dl Near Optimal/Above Optimal ? 100 - 129 ?mg/dl Borderline High Risk ? 130 - 159 ?mg/dl High Risk ?160 - 189 ?mg/dl Very High Risk ? Greater than 190 mg/dl CHOL/HDL RATIO 4.4 <4.5 07/01/2024 9:14 AM CDT [facility] Comment: CHOL/HDL RATIO: Normal ? Less than 4.5 Increased Risk ? Greater than 4.5 Blood Venipuncture / Unknown 07/01/2024 8:42 AM CDT 07/01/2024 8:42 AM CDT Polo Urrutia DO LAB BLOOD ORDERABLES Performing Organization Address City/State/[facility] Co de Phone Number [facility] [address] [place] [address] * MICROALBUMIN/CREAT RATIO,RANDOM URINE (07/01/2024 8:42 AM CDT) MICROALBUMIN 10.0 Reference range not established mg/L 07/01/2024 9:27 AM CDT [facility] CREATININE, URINE 161 39 - 259 mg/dL 07/01/2024 9:27 AM CDT [facility] ALBUMIN/CREAT RATIO 6 0 - 20 mg/g 07/01/2024 9:27 AM CDT [facility] Urine Non Blood Collection / Unknown 07/01/2024 8:42 AM CDT 07/01/2024 8:42 AM CDT [facility] - 07/01/2024 9:27 AM CDT Test values [...] protein restrictions. Polo Urrutia DO URINE ORDERABLES [facility] [address] [place] [address] * PROSTATIC SPECIFIC AG, SCREEN (07/01/2024 8:42 AM CDT) PROSTATE SPC AG,SCREEN 1.660 <4.000 ng/ml 07/01/2024 3:52 PM CDT [facility] Blood Venipuncture / Unknown 07/01/2024 8:42 AM CDT 07/01/2024 8:42 AM CDT [facility] - 07/01/2024 3:52 PM CDT Samples should not be taken from patients receiving therapy with high biotin doses until at least 8 hours following the last biotin administration.?? High biotin levels in patient samples may falsely increase or decrease the measured value. Patient heterophile antibodies may interfere with immunoassays, e.g. HAMA. Polo Urrutia DO LAB BLOOD ORDERABLES [facility] [address] [facility] [address] [address] [place] [address] documented in this encounter Visit Diagnoses Diagnosis Screening PSA (prostate specific antigen) Special screening for malignant neoplasm of prostate Essential hypertension Unspecified essential hypertension Dyslipidemia Other and unspecified hyperlipidemia documented in this encounter Additional Health Concerns Assessment Noted Time PHQ-9 Depression Total Score: 0 06/30/20 24 11:14 AM CDT A fall risk assessment has been complete d for the patient 11/14/2022 9:17 AM HOSPITAL INSURANCE CLERK documented as of this encounter Care Teams Certified Veterinary Technician Relationship Specialty Start Date End Date Polo Urrutia DO [address] [place] [address] PCP - General Family Medicine 04/22/19 documented as of this encounter
--- OUTSIDE RECORDS SUMMARY | 2024-07-15 21:38 | XMS_ITS | Encounter Summary ---
Author Organization [facility], and Affiliates Address [address] [place] [address] Care Team Providers Care Blasting Gang Miner Name Role Phone Polo Urrutia DO Primary Care Provider [phone] Encounter Details Date Type Department Care Team (Latest Contact Info) Description 06/17/2024 Travel Social History Tobacco Use Types Packs/Day [...] often do you attend chur ch or scientologist services? More than 4 times per year 05/09/2023 Do you belong to any clubs o r organizations such as confucianism groups, unions, fraternal or athletic groups, or [...] and heating? Not hard at all 05/09/2023 [facility] Occupat ional Health - Occupational [...] place to sleep or slept in a assisted (including now)? No 05/09/2023 Alcohol Use Answer [...] Sex Assigned at Male 10/19/2021 4:19 AM OFFSET PRINTER Gender Identity Male 10/19/2021 4:19 AM OFFSET PRINTER Sexual Orientation Choose not to disclose 2023 3:33 PM OFFSET PRINTER documented as of this encounter Plan of Treatment Upcoming Encounters Date Type Department Care Team (Late st Contact Info) Description 07/23/2024 1:30 PM CDT Office Visit [facility] [address] [place] [address] Sandy Rivero MD [address] [place] [address] 09/26/2024 1:00 PM OFFSET PRINTER Appointment [facility] [address] [place] [address] Polo Urrutia DO [address] [place] [address] 10/07/2024 1:00 PM OFFSET PRINTER Office Visit [facility] [address] [place] [address] Landry Chavez MD [address] [place] [address] 12/15/2024 2:00 PM OFFSET PRINTER Office Visit [facility] Ear Nose Throat [address] [place] [phone] Milagro Fernandez Au.D. [address] [place] [address] 07/08/2025 8:00 AM CDT Lab/Non-Imaging [facility] [address] [place] [address] 07/08/2025 8:45 AM CDT Office Visit [facility] [address] [place] [address] Polo Urrutia DO [address] [place] [address] documented as of this encounter Visit Diagnoses Not on filedocumented in this encounter Additional Health Concerns Assessment Noted Time PHQ-9 Depression Total Score: 3 09/28/20 15 5:07 PM OFFSET PRINTER A fall risk assessment has been complete d for the patient 11/14/2022 9:17 AM OFFSET PRINTER documented as of this encounter Care Teams Blasting Gang Miner Relationship Specialty Start Date End Date Polo Urrutia DO [address] [place] [address] PCP - General Family Medicine 04/22/19 documented as of this encounter
--- OUTSIDE RECORDS SUMMARY | 2024-07-15 21:38 | XMS_ITS | Encounter Summary ---
Author Organization [facility], and Affiliates Address [address] [place] [address] Care Team Providers Care Erp Manager Name Role Phone GhadaPolo sher Tremaine DAMICO Primary Care Provider [phone] Reason for Visit * Reason Comments Refill Request Encounter Details Date Type Department Care Team (Late st Contact Info) Description 06/19/2024 Refill [facility] [address] [place] [address] Sandy Rivero MD [address] [place] [address] Refill Request Social History Tobacco Use Types [...] often do you attend chur ch or baptism services? More than 4 times per year 05/09/2023 Do you belong to any clubs o r organizations such as evangelical groups, unions, fraternal or athletic groups, or [...] and heating? Not hard at all 05/09/2023 [facility] of Occupat ional Health - Occupational [...] place to sleep or slept in a care home (including now)? No 05/09/2023 Alcohol Use [...] Sex Assigned at Male 10/19/2021 4:19 AM CHAIN TESTING MACHINE OPERATOR Gender Identity Male 10/19/2021 4:19 AM CHAIN TESTING MACHINE OPERATOR Sexual Orientation Choose not to disclose 2023 3:33 PM CHAIN TESTING MACHINE OPERATOR documented as of this encounter Plan of Treatment Upcoming Encounters Date Type Department Care Team (Late st Contact Info) Description 07/23/2024 1:30 PM CDT Office Visit [address] [address] Sandy Rivero MD [address] [place] [address] 09/26/2024 1:00 PM CHAIN TESTING MACHINE OPERATOR Appointment [facility] [address] [place] [address] Polo Urrutia, DO [facility] [address] [address] 10/07/2024 1:00 PM CHAIN TESTING MACHINE OPERATOR Office Visit [address] [address] Landry Chavez MD [address] [place] [address] 12/15/2024 2:00 PM CHAIN TESTING MACHINE OPERATOR Office Visit [facility] Ear Nose Throat [address] [place] [phone] Milagro Fernandez Au.D. [address] [place] [phone] 07/08/2025 8:00 AM CDT Lab/Non-Imaging [facility] [address] [place] [address] 07/08/2025 8:45 AM CDT Office Visit [facility] [address] [place] [address] Polo Urrutia DO [address] [facility] [address] [place] [address] documented as of this encounter Visit Diagnoses Not on filedocumented in this encounter Additional Health Concerns Assessment Noted Time PHQ-9 Depression Total Score: 3 09/28/20 15 5:07 PM CHAIN TESTING MACHINE OPERATOR A fall risk assessment has been complete d for the patient 11/14/2022 9:17 AM CHAIN TESTING MACHINE OPERATOR documented as of this encounter Care Teams Erp Manager Relationship Specialty Start Date End Date Polo Urrutia DO [address] [address] [place] [address] PCP - General Family Medicine 04/22/19 documented as of this encounter
--- OUTSIDE RECORDS SUMMARY | 2024-07-15 21:39 | XMS_ITS | Encounter Summary ---
Author Organization [facility] and [facility]ates Address [address] [place] [address] Care Team Providers Care Electrical Drafter Name Role Phone Polo Urrutia DO Primary Care Provider [phone] Encounter Details Date Type Department Care Team (Latest Contact Info) Description 06/05/2024 Travel Social History Tobacco Use Types Packs/Day [...] often do you attend chur ch or caodaism services? More than 4 times per year [...] and heating? Not hard at all 05/09/2023 [facility] of Occupat ional Health - Occupational Stress [...] Sex Assigned at Male 10/19/2021 4:19 AM CARBON FURNACE OPERATOR HELPER Gender Identity Male 10/19/2021 4:19 AM CARBON FURNACE OPERATOR HELPER Sexual Orientation Choose not to disclose 2023 3:33 PM CARBON FURNACE OPERATOR HELPER documented as of this encounter Plan of Treatment Upcoming Encounters Date Type Department Care Team (Late st Contact Info) Description 07/23/2024 1:30 PM CDT Office Visit [facility] [address] [place] [address] Sandy Rivero MD [address] [place] [address] 09/26/2024 1:00 PM CARBON FURNACE OPERATOR HELPER Appointment [facility] [address] [place] [address] Polo Urrutia DO [address] [place] [address] 10/07/2024 1:00 PM CARBON FURNACE OPERATOR HELPER Office Visit [facility] [address] [place] [address] Landry Chavez MD [address] [place] [address] 12/15/2024 2:00 PM CARBON FURNACE OPERATOR HELPER Office Visit [facility] Ear Nose Throat [address] [place] [phone] Milagro Fernandez Au.D. [address] [place] [address] 07/08/2025 8:00 AM CDT Lab/Non-Imaging [facility] [address] [place] [address] 07/08/2025 8:45 AM CDT Office Visit [facility] [address] [place] [address] Polo Urrutia DO [address] [place] [address] documented as of this encounter Visit Diagnoses Not on filedocumented in this encounter Additional Health Concerns Assessment Noted Time PHQ-9 Depression Total Score: 3 09/28/20 15 5:07 PM CARBON FURNACE OPERATOR HELPER A fall risk assessment has been complete d for the patient 11/14/2022 9:17 AM CARBON FURNACE OPERATOR HELPER documented as of this encounter Care Teams Electrical Drafter Relationship Specialty Start Date End Date Polo Urrutia DO [address] [place] [address] PCP - General Family Medicine 04/22/19 documented as of this encounter
--- OUTSIDE RECORDS SUMMARY | 2024-07-15 21:39 | XMS_ITS | Encounter Summary ---
Author Organization [facility] radha, and Affiliates Address [address] [place] [address] Care Team Providers Care Business Development Assistant Name Role Phone Obed Bates MD Primary Care Provider [phone] Diana Sotelo Primary Care Provider [phone] Polo Urrutia DO Primary Care Provider [phone] Encounter Details Date Type Department Care Team (Late st Contact Info) Description 11/26/2017 Lab Requisition [facility] [address] [place], [place] [phone] Regis Brito DO Social History Tobacco Use Types Packs/Day Years Used Date Smoking Tobacco: Never Smokeless Tobacco: Never Alcohol Use Standard Drinks/Week Comments No 0 (1 standard drink = 0.6 oz pur e alcohol) Sex and Gender Information Value Date Recorded Sex Assigned at Male 10/19/2021 4:19 AM RESIDENTIAL BUILDER Gender Identity Male 10/19/2021 4:19 AM RESIDENTIAL BUILDER Sexual Orientation Choose not to disclose 2023 3:33 PM RESIDENTIAL BUILDER documented as of this encounter Plan of Treatment Upcoming Encounters Date Type Department Care Team (Late st Contact Info) Description 07/23/2024 1:30 PM CDT Office Visit [facility] [address] [place] [address] Sandy Rivero MD [address] [place] [address] 09/26/2024 1:00 PM RESIDENTIAL BUILDER Appointment [facility] [address] [place] [address] Polo Urrutia, [address] [place] [address] 10/07/2024 1:00 PM RESIDENTIAL BUILDER Office Visit [facility] [address] [place] [address] Landry Chavez MD [address] [place] [address] 12/15/2024 2:00 PM RESIDENTIAL BUILDER Office Visit [facility] Ear Nose Throat [address] [place] [phone] Milagro Fernandez Au.D. [address] [place] [phone] 07/08/2025 8:00 AM CDT Lab/Non-Imaging [facility] [address] [place] [address] 07/08/2025 8:45 AM CDT Office Visit [facility] [address] [place] [address] Polo Urrutia DO [address] [place] [address] documented as of this encounter Procedures Procedure Name Priority Date/Time Associated Diagnosis Comments RUBELLA (BELLIN ONLY) Routine 11/26/2017 1:56 PM RESIDENTIAL BUILDER documented in this encounter Results * RUBELLA (BELLIN ONLY) (11/26/2017 1:56 PM RESIDENTIAL BUILDER) RUBELLA SCREEN Immune Equivocal, Immune 11/28/2017 10:32 AM RESIDENTIAL BUILDER [facility] Blood 11/26/2017 1:56 PM RESIDENTIAL BUILDER 11/26/2017 2:42 PM RESIDENTIAL BUILDER Narrative [facility] - 11/28/2017 10:32 AM RESIDENTIAL BUILDER (Interpretation) ??Immunity indicates detectable levels of antibody or prior exposure to the virus but does not exclude the possibility of of an ongoing infection. Testing for the presence of IgM rubella antibody should be used to diagnose recent infection. Regis Bose Alisha DAMICO LAB BLOOD ORDERABLE S [facility] [address] [facility] [phone] [place] [phone] documented in this encounter Visit Diagnoses Not on filedocumented in this encounter Additional Health Concerns Assessment Noted Time PHQ-9 Depression Total Score: 3 09/28/20 15 5:07 PM RESIDENTIAL BUILDER A fall risk assessment has been complete d for the patient 10/02/2017 2:53 PM RESIDENTIAL BUILDER documented as of this encounter Care Teams Business Development Assistant Relationship Specialty Start Date End Date Obed Bates MD PCP - General Family Medicine 12/25/16 01/09/19 Diana Sotelo [address] [place] [id number] PCP - General Family Medicine 01/10/19 04/21/19 Polo Urrutia DO [address] [place] [address] PCP - General Family Medicine 04/22/19 documented as of this encounter
--- OUTSIDE RECORDS SUMMARY | 2024-07-15 21:39 | XMS_ITS | Encounter Summary ---
Author Organization [facility], and [facility] Address [address] [place] [address] Care Team Providers Care Tuck Pointer Helper Name Role Phone GhadaPolo garrison Primary Care Provider [phone] Reason for Visit * Reason Comments Office Visit (Eye) OS>OD red, mattered, crusty, watery, itchy x 05/19 Encounter Details Date Type Department Care Team (Latest Contact Info) Description 05/30/2024 9:30 AM CDT Office Visit [address] [address] Sandy Rivero MD [address] [place] [address] Bacterial conjunctivitis of both eyes (Primary Dx); Rosacea blepharoconjunctivitis Social History Tobacco Use Types Packs/Day Years [...] week 05/09/2023 How often do you attend [facility] or yarsanism services? More than 4 times per year 05/09/2023 Do you belong to any clubs o r organizations such as shinto groups, unions, fraternal or athletic groups, or [...] and heating? Not hard at all 05/09/2023 [facility] [place] of Occupat ional Health - Occupational Stress [...] place to sleep or slept in a jail (including now)? No 05/09/2023 Alcohol Use Answer [...] Sex Assigned at Male 10/19/2021 4:19 AM TUTOR Gender Identity Male 10/19/2021 4:19 AM TUTOR Sexual Orientation Choose not to disclose 2023 3:33 PM TUTOR documented as of this encounter Patient Instructions * Patient Instructions* Sandy Rivero MD - 05/30/2024 9:30 AM CDT ROSACEA BLEPHARITIS Definition Rosacea blepharitis is an inflammation of the eyelid margin, which causes painful, irritated, and often red eyes. Blepharitis often causes an imbalance of the tear film that coats the eye, which can lead to dry eye and blurry vision. Some people with blepharitis may also have a tendency to develop styes. If untreated, it can even lead to scarring of the eye surface, resulting in vision problems. Occurrence Blepharitis is very common, but is particularly seen in people with a tendency toward oily skin. It can also occur in people with skin inflammation, including acne or rosacea. It becomes more prominent later in life. Symptoms 1. Lid redness and crusting - The lids are often reddened, somewhat swollen and scaly appearing at the base of the lashes. These scales, as they become coarser, form crusts that cause the lids to stick together. This is especially prominent upon awakening. Styes may also occasionally form. 2. Eye pain, burning and stinging - The inflammation of the lids can cause burning and irritation of the eyelids and the eyes themselves. 3. Tearing/light sensitivity - The eyes may tear more frequently and may be sensitive to bright light. 4. Dry Eye - the oil producing glands of the lid become blocked, and the oils are trapped in the eyelids and do not get combined into the tears. This makes the tears more unstable, so they evaporate quickly and the eyes dry out. This can result in MORE tearing, as the eye tries to make up for the fact that the eye surface is drying out (so-called paradoxical tearing). Treatment Treatment is aimed at decreasing inflammation of the eyelids and providing a more balanced tear film to protect the eye surface. The goal is long-term control to prevent the condition from worsening. This requires daily treatment, without which the condition will recur and worsen. The following steps outline how the condition can best be managed. 1. Upon awakening, place a clean washcloth under hot water (not scalding), wring out excess water, and place on the closed eyelids for at least 3-5 minutes. You may need to rewarm the washcloth during this time, as it will tend to cool off over time. Afterward, use the same washcloth to wipe the closed eyelids in a sweeping motion, from the inner to the outer edge of each lid. A microwavable eye mask with gel beads may be used as well. 2. Try a balanced artificial tear to improve the quality of the tears. These include Refresh Advance and Systane Balance. They can be used up to 4 times a day. 3. Fish oil supplements help to improve the inflammatory status of the eyelids, and to balance the oils produced by the lids. Take a supplement with DHA and EPA listed on the back label, with a total dose of 1500 mg or more per day. 4. If you try these treatments and they are not adequate, other treatments could be beneficial, including a lid scrub (using Jose???s Baby Shampoo - no tears formula, or Ocusoft), steroid ointment for the lids, an oral antibiotic such as doxycycline for rosacea, or a thicker artificial tear, among others. USE Maxitrol three times daily Erythromycin ointment at bedtime, apply to eye and rub into the external lids any excess Warm compresses and baby shampoo or ocusoft for removal of discharge CONTINUE Glaucoma drops as instructed Follow up as recommended by your doctor. Please be aware that some charges, such as a Refraction, may not be covered by your insurance. Also, you may have been dilated at your appointment today whichcan affect your ability to see up close or drive safely, and cause light sensitivity. Please use caution and wear sunglasses. Thank you for allowing [facility] to provide you with care. Please notify us if you haveany questions or concerns regarding your eye care needs. documented in this encounter Progress Notes * Sandy Rivero MD - 05/30/2024 9:30 AM CDT CC: Office Visit (Eye) HPI: Patient here today for eye infection. Woke on 05/19 with OS drainage, red, discharge Seen at Urgent Care - Bacterial Conjuctivitis Started on Tobramycin Q4hrs OS Redness better after 3-4 days but discharge never went away Currently finished Tobramycin Started in OD with redness, discharge Now OD<OS redness, discharge, matter, crusting, itching. Lids pasted upon waking No photophobia or change in vision Hx of Ocular Hypertension Hx of cataract sx w/ IOL OU Hx of PCO OU Hx of CRVO OS- receives Eylea injections Eye Meds: Brimonidine OS BID Latanoprost OU QHS Assessment & Plan: Rosaceaform blepharoconjunctivitis Bacterial blepharitis Handout provided Needs daily management including warm compresses at the very least and lid hygiene Will start with neopolydex and EES hermila given active inflammation and mattering. Could consider doxyin future once surface improved Per 06/03 receipt of results from PCR performed: results show no microbes The Century Cures Act makes medical notes like these available to patients in the interest of transparency. However, be advised that this is a medical document. It is intended as etoo-vo-etxa communication and fact documentation. It is written in medical language and may contain abbreviations or verbiage that are unfamiliar. It may appear blunt or direct. Medical documents are intended to carry relevant information, facts as evident, and the clinical opinion of the practitioner. documented in this encounter Plan of Treatment Upcoming Encounters Date Type Department Care Team (Ariane rodriguez Contact Info) Description 07/23/2024 1:30 PM CDT Office Visit [facility] [address] [place] [address] Sandy Rivero MD [address] [place] [address] 09/26/2024 1:00 PM TUTOR Appointment [facility] [address] [place] [address] Polo Urrutia DO [address] [place] [address] 10/07/2024 1:00 PM TUTOR Office Visit [facility] [address] [place] [address] Landry Chavez MD [address] [place] [address] 12/15/2024 2:00 PM TUTOR Office Visit [facility] [address] [place] [address] Milagro Fernandez Au.D. [address] [place] [address] 07/08/2025 8:00 AM CDT Lab/Non-Imaging [facility] [address] [place] [address] 07/08/2025 8:45 AM CDT Office Visit [facility] [address] [place] [address] Polo Urrutia DO [address] [place] [address] documented as of this encounter Visit Diagnoses Diagnosis Bacterial conjunctivitis of both eyes- Primary Rosacea blepharoconjunctivitis documented in this encounter Additional Health Concerns Assessment Noted Time PHQ-9 Depression Total Score: 3 09/28/20 15 5:07 PM TUTOR A fall risk assessment has been complete d for the patient 11/14/2022 9:17 AM TUTOR documented as of this encounter Care Teams Tuck Pointer Helper Relationship Specialty Start Date End Date Polo Urrutia DO [address] [facility] [address] [place] [address] PCP - General Family Medicine 04/22/19 documented as of this encounter
--- OUTSIDE RECORDS SUMMARY | 2024-07-15 21:39 | XMS_ITS | Encounter Summary ---
Author Organization [facility] and [facility] Address [address] [place] [address] Care Team Providers Care Creel Hand Name Role Phone Polo Urrutia DO Primary Care Provider [phone] Encounter Details Date Type Department Care Team (Latest Contact Info) Description 04/22/2024 Travel Social History Tobacco Use Types Packs/Day [...] often do you attend chur ch or episcopal services? More than 4 times per year [...] and heating? Not hard at all 05/09/2023 [facility] of Occupat ional Health - Occupational [...] Sex Assigned at Male 10/19/2021 4:19 AM CUSTOMER CONTACT REPRESENTATIVE Gender Identity Male 10/19/2021 4:19 AM CUSTOMER CONTACT REPRESENTATIVE Sexual Orientation Choose not to disclose 2023 3:33 PM CUSTOMER CONTACT REPRESENTATIVE documented as of this encounter Plan of Treatment Upcoming Encounters Date Type Department Care Team (Late st Contact Info) Description 07/23/2024 1:30 PM CDT Office Visit [facility] [address] [place] [address] Sandy Rivero MD [address] [place] [address] 09/26/2024 1:00 PM CUSTOMER CONTACT REPRESENTATIVE Appointment [facility] [address] [place] [address] Polo Urrutia DO [address] [place] [address] 10/07/2024 1:00 PM CUSTOMER CONTACT REPRESENTATIVE Office Visit [facility] [address] [place] [address] Landry Chavez MD [address] [place] [address] 12/15/2024 2:00 PM CUSTOMER CONTACT REPRESENTATIVE Office Visit [facility] [address] [place] [id number] Milagro Fernandez Au.D. [address] [place] [address] 07/08/2025 8:00 AM CDT Lab/Non-Imaging [facility] [address] [place] [address] 07/08/2025 8:45 AM CDT Office Visit [facility] [address] [place] [address] Polo Urrutia DO [address] [place] [address] documented as of this encounter Visit Diagnoses Not on filedocumented in this encounter Additional Health Concerns Assessment Noted Time PHQ-9 Depression Total Score: 3 09/28/20 15 5:07 PM CUSTOMER CONTACT REPRESENTATIVE A fall risk assessment has been complete d for the patient 11/14/2022 9:17 AM CUSTOMER CONTACT REPRESENTATIVE documented as of this encounter Care Teams Creel Hand Relationship Specialty Start Date End Date Polo Urrutia DO [address] [place] [address] PCP - General Family Medicine 04/22/19 documented as of this encounter
--- OUTSIDE RECORDS SUMMARY | 2024-07-15 21:39 | XMS_ITS | Referral Summary ---
Author Organization [facility] Address [address] [place] [address] Care Team Providers Care Pharmacy Services Director Name Role Phone Polo Urrutia MD Primary Care Provider + [phone] Allergies No known active allergies Medications Medication Sig Dispensed Refills Start Date End Date Status aspirin 81 MG tablet Take 81 mg by mouth daily. Active SIMVASTATIN PO Take by mouth. Active Active Problems No known active problems Social History Tobacco Use Types Packs/Day Years Used Date Smoking Tobacco: Never Smokeless Tobacco: Never Alcohol Use Standard Drinks/Week Comments Not Asked 0 (1 standard drink = 0.6 oz pur e alcohol) Inadequate Housing Answer Date Recorded Social Determinants: Housing (Overall Score Help er) 0 08/19/2019 Sex and Gender Information Value Date Recorded Sex Assigned at Not on file Gender Identity Not on file Sexual Orientation Not on file Last Filed Vital Signs Vital Sign Reading Time Taken Comments Blood Pressure 134/80 04/08/2013 7:50 AM CDT Pulse 80 08/19/2019 10:35 AM CDT Temperature 36.7 ??C (98 ??F) 08/19/2019 10:35 AM CDT Respiratory Rate - - Oxygen Saturation 94% 08/19/2019 10:35 AM CDT Inhaled Oxygen Concentration - - Weight 106.1 kg (234 lb) 08/19/2019 10:35 AM CDT Height 181.6 cm (5' 11.5) 08/19/2019 10:35 AM C DT Body Mass Index 32.18 08/19/2019 10:35 AM CDT Plan of Treatment Not on file Care Teams Pharmacy Services Director Relationship Specialty Start Date End Date Polo Urrutia MD [address] [place] [address] [address] [place] [address] PCP - General Family Practice 08/19/19
--- OUTSIDE RECORDS SUMMARY | 2024-07-15 21:39 | XMS_ITS | Encounter Summary ---
Author Organization [facility] Address [address] [place] [address] Care Team Providers Care Body Team Member Name Role Phone Polo Urrutia DO Primary Care Provider [phone] Encounter Details Date Type Department Care Team (Latest Contact Info) Description 05/30/2024 Travel Social History Tobacco Use Types Packs/Day [...] often do you attend chur ch or mormon services? More than 4 times per year 05/09/2023 Do you belong to any clubs o r organizations such as religious groups, unions, fraternal or athletic groups, or [...] heating? Not hard at all 05/09/2023 [facility] of Occupat ional Health - Occupational [...] Assigned at Male 10/19/2021 4:19 AM SUPERVISOR SHIPPING ROOM Gender Identity Male 10/19/2021 4:19 AM SUPERVISOR SHIPPING ROOM Sexual Orientation Choose not to disclose 2023 3:33 PM SUPERVISOR SHIPPING ROOM documented as of this encounter Plan of Treatment Upcoming Encounters Date Type Department Care Team (Late st Contact Info) Description 07/23/2024 1:30 PM CDT Office Visit [facility] [address] [place] [address] Sandy Rivero MD [address] [place] [address] 09/26/2024 1:00 PM SUPERVISOR SHIPPING ROOM Appointment [facility] [address] [place] [address] Polo Urrutia DO [address] [place] [address] 10/07/2024 1:00 PM SUPERVISOR SHIPPING ROOM Office Visit [facility] [address] [place] [address] Landry Chavez MD [address] [place] [address] 12/15/2024 2:00 PM SUPERVISOR SHIPPING ROOM Office Visit [facility] [address] [place] [phone] Milagro Fernandez Au.D. [address] [place] [address] 07/08/2025 8:00 AM CDT Lab/Non-Imaging [facility] [address] [place] [address] 07/08/2025 8:45 AM CDT Office Visit [facility] [address] [place] [address] Polo Urrutia DO [address] [place] [address] documented as of this encounter Visit Diagnoses Not on filedocumented in this encounter Additional Health Concerns Assessment Noted Time PHQ-9 Depression Total Score: 3 09/28/20 15 5:07 PM SUPERVISOR SHIPPING ROOM A fall risk assessment has been complete d for the patient 11/14/2022 9:17 AM SUPERVISOR SHIPPING ROOM documented as of this encounter Care Teams Body Team Member Relationship Specialty Start Date End Date Polo Urrutia DO [address] [place] [address] PCP - General Family Medicine 04/22/19 documented as of this encounter
--- OUTSIDE RECORDS SUMMARY | 2024-07-15 21:39 | XMS_ITS ---
Author Organization [facility] ALLERGIES AND ADVERSE REACTIONS No information ASSESSMENT No information CHIEF COMPLAINT No information Vital Signs Bpsitting Date Heartrate Weight Height Spo2 Respiration [facility] Timerecorded 126/86 2023-0 7-22 68 246,0 5,11 93 18 34.3 1 7 09:15 OBJECTIVE DATA No information PHYSICAL EXAMINATION No information TREATMENT PLAN No information PROBLEMS No information RESULTS No information REVIEW OF SYSTEMS No information SUBJECTIVE DATA No information MEDICATIONS No information
--- OUTSIDE RECORDS SUMMARY | 2024-07-15 21:39 | XMS_ITS | Patient Health Record ---
Author Organization [facility] Address [address] [place] [id number] Care Team Providers Care Diamond Setter Name Role Phone [place], Doctor Primary Care Provider [phone] Sera Patrice Nelson Unavailable [phone] ALLERGIES No Known Allergies REASON FOR REFERRAL No Information MEDICATIONS Medication SIG (Take, Route, Frequency, Duration) Notes Start Date End Date Status Solifenacin Succinate Active Simvastatin Active amLODIPine Besylate 5 MG 1 tablet Orally Once a day Active Tamsulosin HCl 0.4 MG 1 capsule Orally O nce a day Active Tobramycin 0.3 % 1 drop in to each ey e Ophthalmic every 4 hrs for 7 days 05/19/2024 Active Brimonidine-Dorzolamide 0.15-2 % as directed Ophthalmic eye pressure Activ e SOCIAL HISTORY Tobacco Use: Social History Observation Description Date Details (start date - stop date) Never Smoker NA - NA Sex Assigned At : Social History Observation Description Sex Assigned At Unknown Tobacco Use/Smoking Question Answer Notes Smoking Status: nonsmoker VITAL SIGNS Heart Rate 68 /min 05/19/2024 rosario Respiratory Rate 18 /min 05/19/2024 rosario Oximetry 93 % 05/19/2024 rosario Blood pressure diastolic 86 mm Hg 05/19/2024 rosario Height 71 in 05/19/2024 rosario Blood pressure systolic 126 mm Hg 05/19/2024 rosario Weight 246 lbs 05/19/2024 rosario BMI 34.31 kg/m2 05/19/2024 rosario Encounters Encounter Location Date Provider Diagnosis [address] [id number] 05/19/2024 Patrice Nelson [place] eye disease of left eye H10.022 ASSESSMENTS Encounter Date Diagnosis Assessment Notes Treatment Notes Treatment Clinical Notes 05/19/2024 [place] eye disease of left eye (ICD-10 - H10.022) Informed patient that exam findings are consistent with bacterial pink eye. Discussed with patient that treatment involves antibiotic drops to both eyes as to avoid spread. Encouraged patient to be hands frequently and wash pillow cases as this is contagious. Patient to contact office if condition does not improve despite treatment. 05/19/2024 Other Documentation completed by YUE Bergeron. Reviewed by Patrice Nelson MD. PLAN OF TREATMENT No Information Insurance Providers Payer Name Payer Address Payer Phone Subscriber Number Group Number Insured Name Patient Relationship to Insured Coverage Start Date Coverage End Date [facility]Ia daniela Adv PPO [facility] [address] [address] [place] [address] [phone] [id number] Georges Ochoa Self - patient is the insured MEDICAL (GENERAL) HISTORY Medical History History ICD Code macular degeneration
--- OUTSIDE RECORDS SUMMARY | 2024-07-15 21:39 | XMS_ITS ---
Author Organization [facility] Address [address] [place] [id number] Care Team Providers Care Shoe Repairer Name Role Phone [place], Doctor Primary Care Provider Patrice Nelson Unavailable [phone] ALLERGIES No Known Allergies REASON FOR VISIT Possible pink eye MEDICATIONS Medication SIG (Take, Route, Frequency, Duration) Notes Start Date End Date Status Solifenacin Succinate Active Simvastatin Active amLODIPine Besylate 5 MG 1 tablet Orally Once a day Active Tamsulosin HCl 0.4 MG 1 capsule Orally O nce a day Active Brimonidine-Dorzolamide 0.15-2 % as directed Ophthalmic eye pressure Activ e Tobramycin 0.3 % 1 drop in to each ey e Ophthalmic every 4 hrs for 7 days 05/19/2024 Active SOCIAL HISTORY Tobacco Use: Social History Observation Description Date Details (start date - stop date) Never Smoker NA - NA Sex Assigned At : Social History Observation Description Sex Assigned At Unknown Tobacco Use/Smoking Question Answer Notes Smoking Status: nonsmoker VITAL SIGNS BMI 34.31 kg/m2 05/19/2024 Blood pressure systolic 126 mm Hg 05/19/20 24 Blood pressure diastolic 86 mm Hg 024 Heart Rate 68 /min 05/19/2024 Height 71 in 05/19/2024 Respiratory Rate 18 /min 05/19/2024 Oximetry 93 % 05/19/2024 Weight 246 lbs 05/19/2024 rosario Encounters Encounter Location Date Provider Diagnosis [address] [id number] 05/19/2024 Patrice Nelson [place] eye disease of left eye H10.022 ASSESSMENTS Encounter Date Diagnosis Assessment Notes Treatment Notes Treatment Clinical Notes 05/19/2024 [place] eye disease of left eye (ICD-10 - [...] by Patrice Nelson MD. PLAN OF TREATMENT Medication Medication Name Sig Start Date Stop Date Notes Tobramycin 0.3 % 1 drop in to each ey e Ophthalmic every 4 hrs for 7 days 05/19/2024 Treatment Notes Assessment Notes [place] eye disease of left eye Informed pa tient that exam findings are consistent with bacterial pink eye. Discussed with patient that treatment involves antibiotic drops to both eyes as to avoid spread. Encouraged patient to be hands frequently and wash pillow cases as this is contagious. Patient to contact office if condition does not improve despite treatment. Other Documentation comple dk by YUE Bergeron. Reviewed by Patrice Nelson MD. Progress Notes * Examination Category Sub-Category Detail Notes General Examination GENERAL APPEARANCE: pleasant , in no acute distress, well developed, well nourished HEAD: normocephalic, atrau matic EYES: Bilateral pupils equ al, round, reactive to light and accommodation. LEFT EYE: Sclera injected with yellow crusts on upper and lower lashes LYMPH NODES: no cervical adenopat hy PSYCH: alert, oriented, cog nitive function intact, cooperative with exam, good eye contact, judgement and insight good, mood/affect full range
--- OUTSIDE RECORDS SUMMARY | 2024-07-15 21:39 | XMS_ITS | Encounter Summary ---
Author Organization [facility] Address [address] [place] [address] Care Team Providers Care Trencher Driver Name Role Phone GhadaPolo sher Primary Care Provider Reason for Visit * Reason Comments Office Visit (Eye) Mac check * (Routine) - Authorized Specialty Diagnoses / Procedures Referred By Maria Teresa ball Referred To Contact Ophthalmology Landry Chavez MD [address] [place] [address] Landry Chavez MD [address] [place] [address] Referral ID Status Reason Start Date Expiration Date V isits Requested Visits Authorized [id number] Authorized 11/20/2023 11/20/2024 10 10 Encounter Details Date Type Department Care Team (Late st Contact Info) Description 04/22/2024 10:15 AM CDT Office Visit [address] [address] Landry Chavez MD [address] [place] [address] 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 More than 4 times per year [...] and heating? Not hard at all 05/09/2023 [facility] - [...] Sex Assigned at Male 10/19/2021 4:19 AM ASSESSMENT COUNSELOR Gender Identity Male 10/19/2021 4:19 AM ASSESSMENT COUNSELOR Sexual Orientation Choose not to disclose 2023 3:33 PM ASSESSMENT COUNSELOR documented as of this encounter Progress Notes * Landry Chavez MD - 04/22/2024 10:15 AM CDT CC: Office Visit (Eye) (Mac check) HPI: Macular check for possible Eylea Va stable No other issues to report Compliant w/ gtts Eye Meds: Brimonidine OS BID Latanoprost OU QHS Assessment & Plan: 1. CRVO w/ ME OS - OCT ME essentially resolved - s/p Avastin x 4, defer Eylea # 10 - pt aware may need injections in future - r/b/a d/w Pt - dosing schedule reiterated - call w/ redness/pain/drop in vision - pt expressed understanding - 10-12wk, treat & extend 2. OHTN OS - IOP stable - cont brimonidine bid - cont latanoprost qhs - 10-12wk Dr. Marcos for DELORIS next available 3. LLL papilloma - t/c excision - pt may call to schedule DETAILS OF PROCEDURE Eye: Left Pre-treatment: Ofloxacin [...] 2 mg/0.05 mL Sample: NO Lot number [id number] Exp 01/2025 Refrigerate at 36 to 46 F Protect from light The Cures Act makes medical notes like these available to patients in the interest of transparency. However, be advised that this is a medical document. It is intended as isoe-df-kyww communication and fact documentation. It is written in medical language and may contain abbreviations or verbiage that are unfamiliar. It may appear blunt or direct. Medical documents are intended to carry relevant information, facts as evident, and the clinical opinion of the practitioner. documented in this encounter Procedure Notes * Landry Chavez MD - 04/22/2024 10:15 AM CDTAssociated Order(s): OPHTH OCT SCAN RETINA OS; reliable, CRVO w/ ME Stable central ME, Eylea, 10-12wk documented in this encounter Plan of Treatment Upcoming Encounters Date Type Department Care Team (Late st Contact Info) Description 07/23/2024 1:30 PM CDT Office Visit [facility] [address] [place] [address] Sandy Rivero MD [address] [place] [address] 09/26/2024 1:00 PM ASSESSMENT COUNSELOR Appointment [facility] [address] [place] [address] Polo Urrutia DO [address] [place] [address] 10/07/2024 1:00 PM ASSESSMENT COUNSELOR Office Visit [facility] [address] [place] [address] Landry Chavez MD [address] [place] [address] 12/15/2024 2:00 PM ASSESSMENT COUNSELOR Office Visit [facility] [address] [place] [address] Milagro Fernandez Au.D. [address] [place] [phone] 07/08/2025 8:00 AM CDT Lab/Non-Imaging [facility] [address] [place] [address] 07/08/2025 8:45 AM CDT [facility] [address] [place] [address] Polo Urrutia, [address] [place] [address] documented as of this encounter Procedures Procedure Name Priority Date/Time Associated Diagnosis Comments OPHTH OCT SCAN RETINA Routine 04/22/2024 10:15 AM CDT Central retinal vein occlusion with macular edema of left eye (*) documented in this encounter Results * OPHTH OCT SCAN RETINA (04/22/2024 10:15 AM CDT) Narrative Landry Chavez MD - 04/22/2024 10:15 AM CDT Landry Chavez MD ? 04/22/2024 10:47 AM OS; reliable, CRVO w/ ME Stable central ME, Eylea, 10-12wk Landry Chavez MD [facility]MOLOGY [facility] documented in this encounter Visit Diagnoses Diagnosis Central retinal vein occlusion with macular edema of left eye (*)- Primary documented in this encounter Additional Health Concerns Assessment Noted Time PHQ-9 Depression Total Score: 3 09/28/20 15 5:07 PM ASSESSMENT COUNSELOR A fall risk assessment has been complete d for the patient 11/14/2022 9:17 AM ASSESSMENT COUNSELOR documented as of this encounter Care Teams Trencher Driver Relationship Specialty Start Date End Date Polo Urrutia DO [address] [address] PCP - General Family Medicine 04/22/19 documented as of this encounter
--- OUTSIDE RECORDS SUMMARY | 2024-07-15 21:39 | XMS_ITS | Encounter Summary ---
Author Organization [facility] Address [address] [place] [address] Care Team Providers Care [facility] Name Role Phone Polo Urrutia DO Primary Care Provider [phone] Encounter Details Date Type Department Care Team (Latest Contact Info) Description 04/20/2024 Travel Social History Tobacco Use Types Packs/Day [...] often do you attend chur ch or moravian services? More than 4 times per year 05/09/2023 Do you belong to any clubs o r organizations such as amish groups, unions, fraternal or athletic groups, or [...] and heating? Not hard at all 05/09/2023 [facility] - Occupational Stress [...] place to sleep or slept in a chcf (including now)? No 05/09/2023 Alcohol Use Answer [...] Sex Assigned at Male 10/19/2021 4:19 AM CHAINSTITCH SEWING MACHINE OPERATOR Gender Identity Male 10/19/2021 4:19 AM CHAINSTITCH SEWING MACHINE OPERATOR Sexual Orientation Choose not to disclose 2023 3:33 PM CHAINSTITCH SEWING MACHINE OPERATOR documented as of this encounter Plan of Treatment Upcoming Encounters Date Type Department Care Team (Late st Contact Info) Description 07/23/2024 1:30 PM CDT Office Visit [facility] [address] [place] [address] Sandy Rivero MD [address] [place] [address] 09/26/2024 1:00 PM CHAINSTITCH SEWING MACHINE OPERATOR Appointment [facility] [address] [place] [address] Polo Urrutia DO [address] [place] [address] 10/07/2024 1:00 PM CHAINSTITCH SEWING MACHINE OPERATOR Office Visit [facility] [address] [place] [address] Landry Chavez MD [address] [place] [address] 12/15/2024 2:00 PM CHAINSTITCH SEWING MACHINE OPERATOR Office Visit [facility] Ear Nose Throat [address] [place] [id number] Milagro Fernandez Au.D. [address] [place] [address] 07/08/2025 8:00 AM CDT Lab/Non-Imaging [facility] [address] [place] [address] 07/08/2025 8:45 AM CDT Office Visit [facility] [address] [place] [address] Polo Urrutia DO [address] [place] [address] documented as of this encounter Visit Diagnoses Not on filedocumented in this encounter Additional Health Concerns Assessment Noted Time PHQ-9 Depression Total Score: 3 09/28/20 15 5:07 PM CHAINSTITCH SEWING MACHINE OPERATOR A fall risk assessment has been complete d for the patient 11/14/2022 9:17 AM CHAINSTITCH SEWING MACHINE OPERATOR documented as of this encounter Care Teams [facility] Relationship Specialty Start Date End Date Polo Urrutia DO [address] [place] [address] PCP - General Family Medicine 04/22/19 documented as of this encounter
--- OUTSIDE RECORDS SUMMARY | 2024-07-15 21:39 | XMS_ITS | Clinical Summary ---
Author Organization [facility] Address [address] [place] [id number] Care Team Providers Care Nail Cutter Name Role Phone Polo Urrutia MD Primary Care Provider + [phone] Allergies No known active allergies Medications Medication Sig Dispensed Refills Start Date End Date Status aspirin 81 MG tablet Take 81 mg by mouth daily. Active SIMVASTATIN PO Take by mouth. Activ e Active Problems No known active problems Social [...] on file Sexual Orientation Not on file Obstetrics History Last Filed Vital Signs Vital Sign Reading [...] 08/19/2019 10:35 AM CDT Plan of Treatment Health Maintenance Due Date Last Done Comments Depression Screening 1964 CT Colonography 1997 Cologuard 1997 Colonoscopy 1997 Colorectal Cancer Screen 1997 Fecal Occult Blood 1997 Sigmoidoscopy 1997 Shingles Vaccine (1 of 2) 2002 DTaP/Tdap/Td Vaccine (2 - Td or Tdap) 08/14/2021 08/14/2011 COVID-19 Vaccine (1 - season) 2023 Medicare Advantage- Medicare Wellness Visit 10/29/2023 Influenza Vaccine (#1) 2024 8, 09/17/2017, 09/01/2016, Additional history exists Pneumococcal Vaccine 65+ Completed 04/22/2019, 1202/2017 HPV Vaccine Aged Out No longer eligi ble based on patient's age to complete this topic Hepatitis B Vaccine (For Physician/APC Discussion) Aged Out No longer elig ible based on patient's age to complete this topic Meningococcal Vaccine Aged Out No brandie claudio eligible based on patient's age to complete this topic Care Teams Nail Cutter Relationship Specialty Start Date End Date Polo Urrutia MD [address] [place] [address] PCP - General Family Practice 08/19/19
[2024-07-15 21:51] LABS: Basophils Absolute Auto 0.03 K/uL (0.00-0.30); Basophils Percent Auto 0.4 % (0.0-3.0); Eosinophils Absolute Auto 0.24 K/uL (0.00-0.50); Eosinophils Percent Auto 3.1 % (0.0-7.0); Hematocrit 46.8 % (37.0-53.0); Immature Granulocytes Abs Auto 0.01 K/uL (0.00-0.30); Immature Granulocytes Pct Auto 0.1 %; Mean Corpuscular HGB Conc 34 gm/dL (32-36); Mean Corpuscular Hemoglobin 30 pg (26-34); Mean Corpuscular Volume 89 fL (80-100); Monocytes Percent Auto 7.6 % (0.0-11.0); Neutrophils Absolute Auto 5.15 K/uL (1.7-7.0); Neutrophils Percent Auto 66.8 % (42.0-72.0); Platelet Count* 240 K/uL (140-440); RDW Coefficient of Variation % 13.4 % (11.5-15.5); Red Blood Count 5.29 m/uL (4.30-5.90); White Blood Count* 7.72 K/uL (4.50-11.00)
[2024-07-15 22:09] LABS: Chloride* 110 mmol/L (96-114); Potassium* 3.8 mmol/L (3.6-5.1); Sodium* 139 mmol/L (135-149)
[2024-07-15 22:12] LABS: Creatinine* 0.9 mg/dL (0.5-1.5); Est. Creatinine Clearance* 72.16; Estimated Glomerular Filt Rate 91 ml/min
[2024-07-15 22:13] LABS: Anion Gap 9 mEq/L (7-15); Blood Urea Nitrogen* 13 mg/dL (7-30); Calcium* 8.9 mg/dL (8.4-10.6); Carbon Dioxide* 20 mmol/L (20-32); Glucose* 95 mg/dL (60-115)
[2024-07-15 22:16] LABS: C Reactive Protein* 0.6 mg/dL (0.5-1.0)
[2024-07-15 22:20] LABS: Slide Review Reflex No
[2024-07-15 22:23] LABS: NT Pro B Type NatriureticPept* 132 pg/mL
[2024-07-15 22:37] LABS: PCR FLU A Negative PCR FLU A (Negative); PCR FLU B Negative PCR FLU B (Negative); SARS PCR* Negative SARS-CoV-2 (Negative)
== END 2024-07-15 22:54 | disposition home or self-care (01) ==
PROVIDERS: Family Medicine; Emergency Provider Family Medicine
DX: R32 Unspecified urinary incontinence (principal); R35.0 Frequency of micturition
CPT/HCPCS: 36415; 51798; 71045; 80048; 81001; 83880; 85025; 86140; 87631; 99283; 99284